=== PATIENT | female | born 1945 | race Caucasian/White ===

== ENCOUNTER 2019-01-04 15:12 | Inpatient (IN) ==
[2019-01-04] MEDS ORDERED: methylPREDNISolone 125 MG/2 ML VIAL IVP ONE (15:36)
[2019-01-04] MEDS ORDERED: Ipratropium/Albuterol Neb 3 ML IH ONE ×2 (15:36→17:09)
--- NOTE | 2019-01-04 15:44 | Emergency Department Note ---
Disposition Clinical Impression: COPD exacerbation Disposition: Admitted As Inpatient Condition: Undetermined Time of Disposition: 18:31 Chest Pain HPI - General Chief Complaint: ED Chest Pain Stated Complaint: cp/estela Time Seen by Provider: 01/04/19 15:29 Source: patient, EMS Mode of arrival: EMS Limitations: no limitations Vital Signs Reviewed: Yes Nursing Notes Reviewed: Yes - History of Present Illness HPI Narrative: 73-year-old female arrives to the emergency department with complaint of shortness of breath and mild chest pressure. Patient's pain started roughly 1.5 hours prior to arrival. The patient had a cardiac ablation during a JOANIE earlier today performed by Dr. Luis Manuel prado at [facility]. The patient has been undergoing treatment with Eliquis for atrial fibrillation. The patient states that her O2 saturation was in the low 70s upon arrival from EMS the placed on a nonrebreather mask which brought her oxygen up into the 90s. On arrival to the emergency department O2 saturation is 89-90% on 4 L nasal cannula. I nini her oxygen level to 6 L nasal cannula. The patient is in no respiratory distress but does appear to be taking deep breaths that are intermittent in nature. The patient states her chest pressure is subsequently resolved at this time. She has no other complaints including unilateral leg swelling, history DVT or PE, hemoptysis, recent surgeries but does admit to begin this recent JOANIE. Patient denies any other complaints at this time. Severity scale (1-10): 1 - Related Data Home Medications Medication Instructions Recorded Confirmed RX: Atenolol [Tenormin] 50 mg PO DAILY 05/27/16 01/04/19 RX: Cholecalciferol (Vitamin D3) 5,000 unit PO DAILY 05/27/16 01/04/19 [Vitamin D3] RX: Duloxetine HCl [Cymbalta] 60 mg PO DAILY 05/27/16 01/04/19 RX: Gabapentin [Neurontin] 300 mg PO BID 05/27/16 01/04/19 RX: Pregabalin [Lyrica] 200 mg PO BID 05/27/16 01/04/19 RX: Zolpidem Tartrate [Edluar] 10 mg PO HS 05/27/16 01/04/19 RX: Aspirin [Lo-Dose Aspirin EC] 81 mg PO DAILY 11/22/18 11/22/18 RX: Furosemide [Lasix] 20 mg PO 3XW 11/22/18 01/04/19 RX: Lactobacillus [Culturelle] 1 each PO DAILY 11/22/18 01/04/19 RX: Potassium 99 mg PO DAILY 11/22/18 11/22/18 RX: Potassium Gluconate 550 mg PO DAILY 11/22/18 01/04/19 Previous Rx's Medication Instructions Recorded RX: NIFEdipine XL (24 HR) 30 mg PO DAILY #30 tablet.er 05/27/16 [Procardia XL] Allergies Allergy/AdvReac Type Severity Reaction Status Date / Time naproxen [From Naprosyn] Allergy Hives Verified 01/04/19 15:19 codeine AdvReac Mild Anxiety Verified 01/04/19 15:19 All systems ED: reviewed and negative except as stated. Constitutional: Denies: fever, chills, weakness ENT ED: Denies: dysphagia Cardiovascular: Reports: chest pain. Denies: dyspnea on exertion, orthopnea, edema, syncope Respiratory: Reports: dyspnea, wheezes. Denies: cough, hemoptysis, sputum production Gastrointestinal: Denies: abdominal pain, nausea, vomiting Genitourinary: Denies: urgency, dysuria Musculoskeletal: Denies: back pain, neck pain Integumentary: Denies: rash Neurological: Denies: headache, weakness Chest Pain PMH - Past Medical History Medical history: Reports: arthritis, atrial fibrillation, fibromyalgia, GERD, hyperlipidemia, hypertension, other Surgical history: Reports: hysterectomy Psychiatric history: Reports: no psych history - Social History Smoking Status: Former smoker Alcohol use: Reports: none Drug use: Reports: none Physical Exam - General Limitations: no limitations General appearance: alert, in no apparent distress - Head Head exam: atraumatic, normocephalic, normal inspection - Eye Eye exam: Present: normal appearance, PERRL, EOMI - ENT ENT exam: normal exam - Neck Neck exam: Present: normal inspection, full ROM, trachea midline - Chest Chest inspection: Present: normal inspection, symmetric chest wall rise - Respiratory Respiratory exam: Present: wheezes (mild scattered). Absent: respiratory distress - Cardiovascular Cardiovascular exam: Present: regular rate, normal rhythm, normal heart sounds - Abdominal Exam Abdominal exam: Present: soft, Non-Tender. Absent: tenderness, distention, guarding, rebound, rigidity - Extremities Exam Extremities exam: Present: normal inspection, full ROM. Absent: tenderness, pedal edema - Neurological Exam Neurological exam: Present: alert, oriented X3 - Skin Skin exam: Present: warm, dry, intact, normal color Course - Reevaluation(s) Reevaluation #1: Patient's reevaluation demonstrates bilateral rales on auscultation. The patient was given an extra DuoNeb and albuterol nebulizer. In addition the patient was noted to have a hemoglobin dropped from 10.9-9.4. Patient is on anticoagulation so Hemoccult card will be sent. No gross blood on visual physician. Patient denies any melena or hematochezia. Time: 17:11 Reevaluation #2: I attempted to admit the patient to the hospitalist. The hospitalist states she refused to take the patient at this time and to admit to the night team. Time: 18:05 Vital Signs Temperature 98.2 F 01/04/19 15:30 Pulse Rate 78 01/04/19 15:30 Respiratory Rate 22 01/04/19 15:30 Blood Pressure 126/62 01/04/19 15:30 O2 Sat by Pulse Oximetry 90 01/04/19 15:30 Temperature 98.2 F 01/04/19 15:32 Pulse Rate 78 01/04/19 15:32 Respiratory Rate 13 01/04/19 18:05 Blood Pressure 126/62 01/04/19 15:32 O2 Sat by Pulse Oximetry 95 01/04/19 18:05 Oxygen Delivery Oxygen Delivery Nasal Cannula Chest Pain - MDM Narrative Medical decision making narrative: Patient's workup in the emergency department demonstrates findings concerning for COPD exacerbation. The patient was noted to be hypoxic upon evaluation initially from EMS in the 70s. The patient was placed on 15 nonrebreather mask. This brought up into the upper 80s. The patient was subsequently placed on 4 L nasal cannula. The patient physical exam and lab work as well as findings here in the emergency department demonstrates findings consistent with a COPD exacerbation. The patient does have a mildly elevated BNP which was ordered secondary to what appears to be vascularization on chest x-ray. This may be congruent with the patient's history of fibrosis of the lungs. The patient was placed on BiPAP secondary very to minimal improvement after DuoNeb's. The patient denies any chest pain at this time. Her pulse ox is improved to the upper 90s. The patient states she is feeling much better. Patient did receive site and Medrol I IV here in the ED as well as 3 duo nebs and one albuterol treatment. The patient is anticoagulated on Eliquis and I am not concerned a bout pulmonary embolus or clot thrown from recent cart emergency secondary to JOANIE being performed at time of cardioversion. The patient will be admitted to the hospitalist this time. Accepted by Dr. beckett. - Lab Data Lab results reviewed: Yes I reviewed the patient's lab results. Result diagrams: 01/04/19 15:47 01/04/19 15:47 Lab Results 01/04/19 01/04/19 01/04/19 Range/Units 15:47 15:47 16:10 WBC 8.0 (4.3-11.1) K/mcL RBC 3.49 L (3.82-4.97) M/mcL Hgb 9.4 L D (11.5-15.4) g/dL Hct 30.8 L (35.3-44.9) % MCV 88.3 (83.0-100.0) fL MCH 26.9 L (28.0-33.3) pg MCHC 30.5 L (31.6-35.5) g/dL RDW 15.0 H (11.5-14.5) % Plt Count 171 (140-400) K/mcL MPV 11.0 (9.4-12.4) fL Immature Gran % 0.4 (0-4) % Seg Neutrophils % 69.6 % Lymphocytes % 22.6 % Monocytes % 6.3 % Eosinophils % 0.8 % Basophils % 0.3 % Neutrophils # 5.6 (1.6-8.9) K/mcL Lymphocytes # 1.8 (0.6-4.6) K/mcL Monocytes # 0.5 (0.0-1.3) K/mcL Eosinophils # 0.1 (0.0-0.6) K/mcL Basophils # 0.0 (0.0-0.2) K/mcL Sodium 138 (136-145) mEq/L Potassium 4.2 (3.5-5.1) mEq/L Chloride 102 (98-107) mEq/L Carbon Dioxide 31 H (23-29) mEq/L BUN 20 (8-23) mg/dL Creatinine 0.56 L (0.60-1.20) mg/dL Est GFR ( Amer) > 60 (> 60) Est GFR (Non-Af Amer) > 60 (> 60) BUN/Creatinine Ratio 36 H (6-26) Glucose 143 H (70-105) mg/dL Calculated Osmolality 291 (280-300) Calcium 8.8 (8.6-10.3) mg/dL Troponin I < 0.03 (< 0.04) ng/mL B-Natriuretic Peptide 259 H (Less than 100) pg/mL Stool Occult Bld Scrn (Negative) 01/04/19 Range/Units 17:10 WBC (4.3-11.1) K/mcL RBC (3.82-4.97) M/mcL Hgb (11.5-15.4) g/dL Hct (35.3-44.9) % MCV (83.0-100.0) fL MCH (28.0-33.3) pg MCHC (31.6-35.5) g/dL RDW (11.5-14.5) % Plt Count (140-400) K/mcL MPV (9.4-12.4) fL Immature Gran % (0-4) % Seg Neutrophils % % Lymphocytes % % Monocytes % % Eosinophils % % Basophils % % Neutrophils # (1.6-8.9) K/mcL Lymphocytes # (0.6-4.6) K/mcL Monocytes # (0.0-1.3) K/mcL Eosinophils # (0.0-0.6) K/mcL Basophils # (0.0-0.2) K/mcL Sodium (136-145) mEq/L Potassium (3.5-5.1) mEq/L Chloride (98-107) mEq/L Carbon Dioxide (23-29) mEq/L BUN (8-23) mg/dL Creatinine (0.60-1.20) mg/dL Est GFR ( Amer) (> 60) Est GFR (Non-Af Amer) (> 60) BUN/Creatinine Ratio (6-26) Glucose (70-105) mg/dL Calculated Osmolality (280-300) Calcium (8.6-10.3) mg/dL Troponin I (< 0.04) ng/mL B-Natriuretic Peptide (Less than 100) pg/mL Stool Occult Bld Scrn Negative (Negative) - Radiology Data Radiology results reviewed: Yes I reviewed the patient's radiology results. Chest X-Ray 01/04/19 15:36 IMPRESSION: Interstitial changes throughout the lungs, diffuse infiltrate versus edema. D/ / Mariano Rayo MD / Mariano Rayo MD Interpreting Provider: Mariano Rayo MD - EKG Data EKG attestation: Yes I reviewed and interpreted this EKG. EKG results narrative: Heart rate 72 beats for minute. Normal sinus rhythm. No ST elevation or ST depression noted. A few atrial premature complexes noted on EKG. Inverted T waves in V4, V5, V6. Attestation Statement - Attestation Attestation: Resident Attestation: I examined this patient and my medical decision making was reviewed with the Resident Physician. I agree with the documented findings, disposition and treatment plan as described except to the extent set forth below. We independently had [id number] contact with the patient. Patient with previous lung problems but no specific diagnosis of COPD, asthma, possible fibrosis presenting to the emergency department for evaluation of shortness of breath after she underwent a cardioversion and ablation earlier today. Patient went home when everything was fine but then symptoms started. Patient does have associated wheezing. Patient will be treated as likely r eactive airway disease. Mild respiratory distress, moderate associated bilateral wheezing, regular rhythm, abdomen soft nontender palpation without significant peripheral edema.
[2019-01-04 16:22] LABS: Basophils % 0.3 %; Eosinophils # 0.1 K/mcL (0.0-0.6); Eosinophils % 0.8 %; Hematocrit 30.8 % (35.3-44.9); Hemoglobin 9.4 g/dL (11.5-15.4); Immature Granulocytes % 0.4 % (0-4); Lymphocytes # 1.8 K/mcL (0.6-4.6); Lymphocytes % 22.6 %; Mean Corpuscular HGB Conc 30.5 g/dL (31.6-35.5); Mean Corpuscular Hemoglobin 26.9 pg (28.0-33.3); Mean Corpuscular Volume 88.3 fL (83.0-100.0); Monocytes # 0.5 K/mcL (0.0-1.3); Monocytes % 6.3 %; Neutrophils # 5.6 K/mcL (1.6-8.9); Platelet Count 171 K/mcL (140-400); Red Blood Count 3.49 M/mcL (3.82-4.97); Segmented Neutrophils % 69.6 %
[2019-01-04 16:42] LABS: BUN/Creatinine Ratio 36 (6-26); Blood Urea Nitrogen 20 mg/dL (8-23); Calcium 8.8 mg/dL (8.6-10.3); Carbon Dioxide 31 mEq/L (23-29); Chloride 102 mEq/L (98-107); Glucose 143 mg/dL (70-105); Osmolality,Calculated 291 (280-300); Potassium 4.2 mEq/L (3.5-5.1); Sodium 138 mEq/L (136-145); Troponin I < 0.03 ng/mL (< 0.04); eGFR For Non-African Americans > 60 (> 60)
[2019-01-04] MEDS ORDERED: Albuterol 2.5 MG/3 ML NEBULIZER IH ONE (17:09)
[2019-01-04] MEDS ORDERED: Naloxone 0.4 MG/ML INJ IVP PRN (19:10)
[2019-01-04] MEDS ORDERED: Acetaminophen 325 MG TABLET PO PRN (19:10)
[2019-01-04] MEDS ORDERED: Ondansetron 4 MG/2 ML VIAL IVP PRN (19:10)
--- NOTE | 2019-01-04 20:03 | Internal Med History&Physical ---
Date of Encounter: 01/04/19 Time of Encounter: 20:02 Internal Medicine - H&P: HPI Chief complaint: SOB History of present illness: Ms. Melendez is a 73 year old female with a past medical history of hypertension, GERD, pulmonary hypertension, hyperlipidemia, chronic hypoxemia on 4 L O2 at home, and history of atrial fibrillation status post cardioversion earlier today who presents to the ED with complaints of shortness of breath and mild chest pressure. Patient underwent successful DC cardioversion for atrial fibrillation earlier this morning. Has been on Eliquis for 2 weeks prior. Patient states that after returning home from her procedure, she had taken a nap and then awoke around 1:30 PM to use the bathroom noting however shortness of breath and chest pressure. Patient remained awake and sat in her recliner still feeling symptomatic without any improvement. Patient subsequently called the squad. When they arrived patient was saturating in the 70s on 4 L. She was placed on a nonrebreather and bumped up to 15 L and brought into the hospital. On arrival, patient was saturating 89-90% on 4L still having some work of breathing. She was placed on a trial of BiPAP and received a breathing treatment including steroids in the ED with improvement in her symptoms. Patient otherwise denies any reports of recent illness, fever, chills, symptoms of upper respiratory tract infection, cough or pleuritic chest pain. Further denies any orthopnea, paroxysmal nocturnal dyspnea or worsening lower extremity edema. With respect to her chest discomfort, she describes it as a heaviness in her chest that was non-radiating, nonpleuritic and not reproducible. Symptoms seem to have resolved. Laboratory workup was relatively unremarkable including a negative troponin. However, patient's hemoglobin has dropped from 10.9-9.4 over the past 5 days. Previously was 12.0 on November 18 of this year. Patient does report history of hemorrhoids in the past with hemorrhoidal bleeding secondary to constipation. She denies dark tarry stools but did note blood on the toilet paper and in her stool approximately 5 days ago. She described it as bright red and less than a teaspoon and quantity. Initial EKG showed nonspecific changes. Chest x-ray suggestive of diffuse infiltrate versus edema. Patient currently stable from a respiratory and hemodynamic standpoint though still requiring higher than baseline levels of oxygen. Past Med Surg Social Fam HX - Past Medical History Medical history: arthritis, atrial fibrillation, fibromyalgia, GERD, hyperlipidemia, hypertension, other Additional medical history: "trouble with my diaphragm", PULMONARY HTN, Psychiatric history: no psych history - Past Surgical History Surgical History: hysterectomy Additional surgical history: bladder suspension, foot surgery, BACK SX, cardiac ablation and cardioversion - Social History Smoking Status: Former smoker Smokeless Tobacco Status: No Alcohol use: none Drug use: none Internal Medicine - H&P: Meds Atenolol [Tenormin] 50 mg PO DAILY 05/27/16 [History] Cholecalciferol (Vitamin D3) [Vitamin D3] 5,000 unit PO DAILY 05/27/16 [History] Duloxetine HCl [Cymbalta] 60 mg PO DAILY 05/27/16 [History] Gabapentin [Neurontin] 300 mg PO BID 05/27/16 [History] NIFEdipine XL (24 HR) [Procardia XL] 30 mg PO DAILY #30 tablet.er 05/27/16 [Rx] Pregabalin [Lyrica] 200 mg PO BID 05/27/16 [History] Zolpidem Tartrate [Edluar] 10 mg PO HS 05/27/16 [History] Aspirin [Lo-Dose Aspirin EC] 81 mg PO DAILY 11/22/18 [History] Furosemide [Lasix] 20 mg PO 3XW 11/22/18 [History] Lactobacillus [Culturelle] 1 each PO DAILY 11/22/18 [History] Potassium 99 mg PO DAILY 11/22/18 [History] Potassium Gluconate 550 mg PO DAILY 11/22/18 [History] Allergy/AdvReac Type Severity Reaction Status Date / Time naproxen [From Naprosyn] Allergy Hives Verified 01/04/19 15:19 codeine AdvReac Mild Anxiety Verified 01/04/19 15:19 All Systems PM: A 10-system review of systems was performed and is negative for pertinent findings except as documented above in the HPI. - Constitutional Constitutional: no chills, no fever(s), no night sweats - EENT Eyes: no change in vision, no discharge, no pain, no photophobia Ears: no ear discharge, no ear pain, no tinnitus Nose, mouth and throat: no dysphagia, no nasal discharge, no neck pain, no sore throat - Cardiovascular Cardiovascular ROS IM: no chest pain, no diaphoresis, no dyspnea, no lightheadedness, no palpitations, no syncope - Respiratory Respiratory: no cough, no dyspnea, no wheezing, no excessive phlegm production - Gastrointestinal Gastrointestinal: no abdominal pain, no diarrhea, no hematemesis, no hematochezia, no melena, no nausea, no vomiting - Genitourinary Genitourinary: no change in urinary stream, no dysuria, no flank pain, no hematuria - Musculoskeletal Musculoskeletal ROS IM: no numbness, no tingling - Integumentary Integumentary IM: no rash, no unusual bruising - Neurological Neurological ROS: no confusion, no convulsions, no focal weakness, no numbness, no tingling, no tremor(s) - Hematologic/Lymphatic Hematologic/Lymphatic: no easy bruising - Constitutional Vitals: Temp Pulse Resp BP Pulse Ox 98.2 F 78 13 126/62 95 01/04/19 15:32 01/04/19 15:32 01/04/19 18:05 01/04/19 15:32 01/04/19 18:05 Exam: General: Alert and oriented 3 lying in bed in no acute distress Skin:Normal color, no rash, no lesions. HEENT:EOM, pupils equal, round and reactive. Cardiovascular:Normal S1 & S2, no rubs, murmurs or gallops. No JVD. Pulse regular. Lungs: Echo was appreciated bilaterally up to the posterior mid thorax. No wheezing noted Abdomen:Soft, non-tender, no rigidity. Extremities:No deformity, no edema or tenderness, no joint swelling or clubbing. Neurological:Normal cognition and motor skills. Pulses:Carotid and radial pulses normal +2. Rest of the physical exam is non contributory Internal Med - H&P Results - Labs CBC & Chem 7: 01/05/19 04:55 01/05/19 04:55 Labs: Short CBC 01/04/19 Range/Units 15:47 WBC 8.0 (4.3-11.1) K/mcL Hgb 9.4 L D (11.5-15.4) g/dL Hct 30.8 L (35.3-44.9) % Plt Count 171 (140-400) K/mcL Neutrophils # 5.6 (1.6-8.9) K/mcL BMP 01/04/19 15:47 Sodium 138 Potassium 4.2 Chloride 102 Carbon Dioxide 31 H BUN 20 Creatinine 0.56 L Glucose 143 H Calcium 8.8 Cardiac Enzymes 01/04/19 Range/Units 15:47 Troponin I < 0.03 (< 0.04) ng/mL - Impressions ITS Impressions Chest X-Ray 01/04/19 15:36 IMPRESSION: Interstitial changes throughout the lungs, diffuse infiltrate versus edema. D/ / Mariano Rayo MD / Mariano Rayo MD Interpreting Provider: Mariano Rayo MD - Assessment and Plan (1) SOB (shortness of breath) Current Visit: No Status: Chronic Assessment and plan: Acute shortness of breath status post DC cardioversion earlier this morning in the setting of history of lung disease of unclear etiology, chronic hypoxic respiratory failure and mild pulmonary hypertension. Suspect etiology to be secondary to acute pulmonary edema in the setting of her cardioversion. No EKG changes or troponin elevation to suggest ACS. No prior history symptoms to suggest acute CHF exacerbation. Last echo in July 2018 showed an EF of 55- 60% with normal left ventricular diastolic function. Low suspicion for PE as patient has been on Eliquis prior. Patient has no history of COPD though did seem to respond to breathing treatments in the ED. -Continue O2 support -Continue with breathing treatments -Stool guaiac secondary to anemia on Eliquis -Given suggestion of edema on chest x-ray and crackles on physical examination we will give 1 dose of IV push Lasix 40 mg. -We will obtain an echocardiogram in the morning -Cardiology consult (2) Chronic respiratory failure with hypoxia Current Visit: Yes Status: Acute Assessment and plan: History of chronic respiratory failure with hypoxemia currently on 4 L nasal cannula at home. Patient has had workup including right heart catheter and pulmonary function testing showing mild pulmonary hypertension and concern for interstitial lung disease. No history of COPD or significant smoking history for that matter. Patient currently in no respiratory distress but still requiring 9 L nasal cannula. -We will continue supportive O2 -We will give Lasix due to concern for pulmonary vascular congestion -DuoNeb treatments and steroids -BiPAP as needed -Consider pulmonary consult if symptoms do not improve (3) Anemia Current Visit: Yes Status: Acute Assessment and plan: Normocytic anemia in the setting of recent treatment with Eliquis for atrial fibrillation. Patient's hemoglobin has dropped from 10.9-9.4 from the until now. Previously back on November 18 her hemoglobin was 12. Does endorse a history of hemorrhoids and recent episode of GI bleed during bowel movement approximately 5 days ago. Hemoccult testing in the ED was negative. Patient currently hemodynamically stable. Suspect GI source. -We will continue Eliquis for now given her risk of recurrence of her A. fib and monitor H&H -Will obtain iron studies -We will obtain stool guaiac test -Consider GI consult Qualifiers: Qualified Code(s): D64.9 - Anemia, unspecified (4) Fibromyalgia Current Visit: Yes Status: Acute Assessment and plan: Continue with home medications. (5) DVT prophylaxis Current Visit: Yes Status: Acute Assessment and plan: Currently on Eliquis - Time Spent With Patient Total time spent is greater than 50% in coordination of care (as documented) at patient's floor/unit and/or counseling patient:
[2019-01-04] MEDS ORDERED: Furosemide 40 MG/4 ML VIAL IVP ONE (20:49)
[2019-01-04] MEDS ORDERED: traMADol 50 MG TABLET PO PRN (22:36)
[2019-01-04] MEDS: MethylPREDNISolone 40 MG/ML VIAL IVP SCH (23:47)
[2019-01-04] MEDS: Ipratropium/Albuterol Neb 3 ML IH SCH (23:53)
[2019-01-05] MEDS: Ipratropium/Albuterol Neb 3 ML IH SCH ×6 (04:26→23:43)
[2019-01-05] MEDS: MethylPREDNISolone 40 MG/ML VIAL IVP SCH ×3 (05:17→18:13)
[2019-01-05 05:35] LABS: % Iron Saturation 6 % (15-50); Iron 30 mcg/dL (50-170); Transferrin 339 mg/dL (203-362)
[2019-01-05 05:36] LABS: BUN/Creatinine Ratio 32 (6-26); Blood Urea Nitrogen 19 mg/dL (8-23); Calcium 9.3 mg/dL (8.6-10.3); Carbon Dioxide 33 mEq/L (23-29); Chloride 95 mEq/L (98-107); Glucose 175 mg/dL (70-105); Magnesium 1.8 mg/dL (1.6-2.6); Osmolality,Calculated 291 (280-300); Phosphorous 3.5 mg/dL (2.7-4.5); Potassium 4.2 mEq/L (3.5-5.1); Sodium 137 mEq/L (136-145); Troponin I < 0.03 ng/mL (< 0.04); eGFR For Non-African Americans > 60 (> 60)
[2019-01-05 05:39] LABS: Hematocrit 30.7 % (35.3-44.9); Hemoglobin 9.7 g/dL (11.5-15.4); Mean Corpuscular HGB Conc 31.6 g/dL (31.6-35.5); Mean Corpuscular Hemoglobin 26.7 pg (28.0-33.3); Mean Corpuscular Volume 84.6 fL (83.0-100.0); Mean Platelet Volume 10.9 fL (9.4-12.4); Platelet Count 179 K/mcL (140-400); Red Blood Count 3.63 M/mcL (3.82-4.97)
[2019-01-05] MEDS ORDERED: *HR* Enoxaparin 40 MG/0.4 ML SYRINGE SQ SCH (06:00)
[2019-01-05] MEDS ORDERED: Furosemide 20 MG TABLET PO SCH (09:00)
[2019-01-05] MEDS ORDERED: Gabapentin 300 MG CAPSULE PO SCH (09:00)
[2019-01-05] MEDS: NIFEdipine XL (24 HR) 30 MG TAB.ER.24 PO SCH (09:06)
[2019-01-05] MEDS: Cholecalciferol (D-3) 1,000 UNIT TABLET PO SCH (09:06)
[2019-01-05] MEDS: Pregabalin 50 MG CAPSULE PO SCH ×2 (09:06→21:27)
[2019-01-05] MEDS: Lactobacillus 1 EACH CAP.SPRINK PO SCH (09:06)
--- NOTE | 2019-01-05 10:15 | Cardiology Progress Note ---
<Marcos Dorsey - Last Filed: 01/05/19 10:38> Date of Encounter: 01/05/19 Time of Encounter: 09:00 Assessment and Plan (1) CHF (congestive heart failure) Current Visit: Yes Status: Acute 3) Suspected CHF with CXR findings and elevated BNP. Last TTE 07/2018-EF 55%-60%. Nomal diastolic function. Mild MR. Mild to moderate tricuspid regurgitation. Mild PAH. Possible dCHF. SOB likely multifactoral with underlying lung disease. Agree with IV lasix. Strict I&O. Low sodium diet. Repeat TTE pending. Qualifiers: Heart failure type: diastolic Heart failure chronicity: acute Qualified Code(s): I50.31 - Acute diastolic (congestive) heart failure (2) Chronic respiratory failure with hypoxia Current Visit: Yes Status: Acute Patient presented with difficulty breathing. States SOB ongoing for months and is pending f/u on recent out-pt work-up. Last TTE 07/2019 showed preserved EF and normal diastolic function, but she did have mild to moderate TR. Noted BNP mildly elevated 327. CXR Showed diffuse infiltrates verses edema. Rales on exam. Repeat TTE pending. Consider pulmonology consult also. Recent abnormal PFT and CT scan with new findings of moderate non-specefic diffuse mosaic ground glass opacities suggesting infiltrate verses inflammation. Now back on Nasal cannula. (3) Atrial fibrillation Current Visit: No Status: Acute S/p successful JOANIE with DCCV to NSR. Remains NSR. On eliquis for past two weeks. Noted Hgb slowly decreasing. Will need to be on AC at least one month after DCCV. Anemia eval in progress by primary team. Qualifiers: Atrial fibrillation type: paroxysmal Qualified Code(s): I48.0 - Paroxysmal atrial fibrillation Discussion w patient/family: The assessment and plan as outlined above was discussed with the patient and/or family members who expressed understanding and agreement. All questions were answered. Thank you for involving us in the care of your patient. Please call with any questions. Subjective Principal diagnosis: respiratory distress Interval history: Ms. Melendez is a [age] year old female with history of chronic hypoxia on home O2 at 4L, atrial fibrillation s/p DCCV/JOANIE 01/04/19, and HTN. She presented to the hospital yesterday evening with difficulty breathing. States she underwent JOANIE/DCCV with no complication yesterday. She converted to NSR. Yesterday evening after laying down for a nap she states she could not sleep because she was having trouble taking breaths. C/o ongoing SOB for the past two months. She was undergoing out-pt evaluation by her PCP and was scheduled to follow with her eligibility analyst. She states her symptoms usually resolve quickly. Yesterday her symptoms did not resolve despite using her home O2 at increased flow rate. The SOB was more severe than she experienced in the past. She was treated with breathing treatment and bipap in the ED with improvement in her sym ptoms. Denies orthopnea, PND, or edema. Objective Vital Signs, Last 4 Hours Temp Pulse Resp BP Pulse Ox 01/05/19 07:49 18 131/75 92 01/05/19 06:36 98.4 F 95 90 General: Conversant HEENT: Atraumatic, Normocephaly, Mucus Membranes Moist Neck: No JVD, Normal carotid pulses Cardiac: Reg Rate and Rhythm, Normal S1 and S2, No Murmur Lungs: Other (Respirations mildly labored with conversation. ) Neuro: Alert and responsive, No focal deficits noted Abdomen: Soft, Non-Tender Skin: No rashes noted on visualized skin Musculoskeletal: No Chest Wall Tenderness Extremities: No Clubbing, No Cyanosis, No Edema, Normal Pulses Results 01/05/19 04:55 01/05/19 04:55 Lab Results 01/04/19 01/04/19 01/04/19 15:47 15:47 16:10 WBC 8.0 Hgb 9.4 L D Hct 30.8 L Plt Count 171 Sodium 138 Potassium 4.2 Chloride 102 Carbon Dioxide 31 H BUN 20 Creatinine 0.56 L Glucose 143 H Calcium 8.8 Magnesium Troponin I < 0.03 B-Natriuretic Peptide 259 H 01/05/19 01/05/19 01/05/19 04:55 04:55 04:55 WBC 10.6 Hgb 9.7 L Hct 30.7 L Plt Count 179 Sodium 137 Potassium 4.2 Chloride 95 L Carbon Dioxide 33 H BUN 19 Creatinine 0.60 Glucose 175 H Calcium 9.3 Magnesium 1.8 Troponin I < 0.03 B-Natriuretic Peptide 367 H - Imaging and Cardiology Echo: report reviewed - EKG Interpretation EKG results cardiology: personally reviewed Consult Discharge Plan - Plan Referrals: Winston Mooney MD [Primary Care Provider] - <ClaytonDennis Piper - Last Filed: 01/06/19 09:23> Date of Encounter: 01/06/19 Assessment and Plan Discussion w patient/family: The assessment and plan as outlined above was discussed with the patient and/or family members who expressed understanding and agreement. All questions were answered. Thank you for involving us in the care of your patient. Please call with any questions. Objective Vital Signs, Last 4 Hours Temp Pulse Resp BP Pulse Ox 01/06/19 07:38 18 95 01/06/19 07:22 97.8 F 81 16 143/74 92 Results 01/05/19 04:55 01/05/19 04:55 - Attending Attestation I have personally performed a face to face evaluation on this patient. I have reviewed and agree with the documented findings and care plan as documented by the TYPING POOL SUPERVISOR. History and Exam by me shows: 73-year-old pleasant female with history of chronic respiratory failure, chronic lung disease, chronic diastolic heart failure, A. fib status post successful JOANIE cardioversion admitted for acute shortness of breath with associated orthopnea. No chest pain or palpitations. She has improved following diuretics. AAOX3 in NAD at the bedside Hemodynamically stable Cardiopulmonary exam revealed S1, S2, grade 2/6 systolic murmur; bilateral basilar rales Rhythm reviewed - sinus rhythm, no acute ST T changes Echo preserved EF, moderate tricuspid regurgitation, mild pulmonary hypertension Impression/plan: 1)Acute distolic CHF exacerbation - Recommend continue IV diuretics. Need to have her oral Lasix increased upon discharge 2) Persistent atrial fibrillation status post JOANIE cardioversion. Needs to continue anticoagulation uninterrupted for at least a month and thereafter based on [id number] score of at least 3 3) Chronic respiratory failure- pulmonary recommendations would be appreciated Thanks, Dennis Arnold MD [facility]
--- NOTE | 2019-01-05 10:32 | Internal Med Progress Note ---
Hospitalist Progress Note - Encounter Date of Encounter: 01/05/19 Time of Encounter: 11:00 - Subjective Interval History: Patient is a 73-year-old female with past medical history significant for chronic hypoxemia on 4 L of nasal cannula with pulmonary hypertension who presents due to shortness of breath status post successful DC cardioversion of atrial fibrillation on 01/04/19 - Exam Vitals: Temp Pulse Resp BP Pulse Ox 98.4 F 95 18 131/75 92 01/05/19 06:36 01/05/19 06:36 01/05/19 07:49 01/05/19 07:49 01/05/19 07:49 Exam: Gen.: Nonacute distress, alert and oriented 3 ENT: Mucosal membranes moist Respiratory: Lungs are clear to auscultation bilaterally without any wheezing rhonchi or rales Cardiovascular: Normal S1 and S2 regular rate rhythm no murmurs rubs or gallops Abdomen: Soft, nontender and nondistended with positive bowel sounds Extremities: No lower extremity edema Skin: Normal color - Assessment and Plan (1) SOB (shortness of breath) Current Visit: No Status: Chronic Assessment and Plan: Patient is a 73-year-old female with past medical history significant for chronic hypoxemia on 4 L of nasal cannula with pulmonary hypertension who presents due to shortness of breath status post successful DC cardioversion of atrial fibrillation on 01/04/19 Echocardiogram pending Patient currently close to baseline O2 requirements on 5 L down from 8 L earlier this morning; patient's baseline is 4 L (2) Chronic respiratory failure with hypoxia Current Visit: Yes Status: Acute Assessment and Plan: History of chronic respiratory failure with hypoxemia currently on 4 L nasal cannula at home. Patient has had workup including right heart catheter and pulmonary function testing showing mild pulmonary hypertension and concern for interstitial lung disease. Patient's O2 requirements now close to baseline as is on 5 L nasal cannula and baseline 4 L of nasal cannula; patient was on 8 L of nasal cannula earlier. Will continue scheduled DuoNeb and steroids (3) Anemia Current Visit: Yes Status: Acute Assessment and Plan: Normocytic anemia in the setting of recent treatment with Eliquis for atrial fibrillation. Patient's hemoglobin has dropped from 10.9-9.4 from the until now. Previously back on November 18 her hemoglobin was 12. Hemoccult testing in the ED was negative. Patient currently hemodynamically sta ble. Stool guaiac test pending as are iron studies. Will continue to monitor (4) Atrial fibrillation Current Visit: No Status: Acute Assessment and Plan: Patient status post subtotal JOANIE with DCCV to normal sinus rhythm Infection currently on oral anticoagulation with Eliquis Patient with sudden shortness of breath status post procedure and cardiology consulted for any recommendations. (5) Fibromyalgia Current Visit: Yes Status: Acute Assessment and Plan: Continue with home medications. DVT Prophylaxis: Continue Eliquis - Time Spent with Patient Total time spent is greater than 50% in coordination of care (as documented) at patient's floor/unit and/or counseling patient: Internal Medicine: Result - Labs CBC & Chem 7: 01/05/19 04:55 01/05/19 04:55 Labs: Short CBC 01/04/19 01/05/19 Range/Units 15:47 04:55 WBC 8.0 10.6 (4.3-11.1) K/mcL Hgb 9.4 L D 9.7 L (11.5-15.4) g/dL Hct 30.8 L 30.7 L (35.3-44.9) % Plt Count 171 179 (140-400) K/mcL Neutrophils # 5.6 (1.6-8.9) K/mcL BMP 01/04/19 01/05/19 15:47 04:55 Sodium 138 137 Potassium 4.2 4.2 Chloride 102 95 L Carbon Dioxide 31 H 33 H BUN 20 19 Creatinine 0.56 L 0.60 Glucose 143 H 175 H Calcium 8.8 9.3 Cardiac Enzymes 01/04/19 01/05/19 Range/Units 15:47 04:55 Troponin I < 0.03 < 0.03 (< 0.04) ng/mL - Impressions Impressions Chest X-Ray 01/04/19 15:36 IMPRESSION: Interstitial changes throughout the lungs, diffuse infiltrate versus edema. D/ / Mariano Rayo MD / Mariano Rayo MD Interpreting Provider: Mariano Rayo MD Consult Discharge Plan - Plan Referrals: Winston Mooney MD [Primary Care Provider] - (3) Anemia Qualifiers: Qualified Code(s): D64.9 - Anemia, unspecified (4) Atrial fibrillation Qualifiers: Atrial fibrillation type: paroxysmal Qualified Code(s): I48.0 - Paroxysmal atrial fibrillation
[2019-01-05] MEDS: Furosemide 40 MG/4 ML VIAL IVP SCH (11:26)
[2019-01-05] MEDS ORDERED: traMADol 50 MG TABLET PO PRN (15:38)
[2019-01-05] MEDS: Apixaban 5 MG TABLET PO SCH ×2 (16:01→21:27)
--- NOTE | 2019-01-05 20:35 | Electrocardiograph Report ---
[place] [id number] Test Date: 2019-01-04 Pat Name: Amanda Melendez Department: [id number] Room: 2NE28 Gender: F Respiratory Support Technician: : 1945 Requested By: Lambert Alonzo Order Number: [id number] Reading MD: Chinyere Velasquez Measurements Intervals [place] Rate: 72 P: 71 CT: 180 QRS: 59 QRSD: 98 T: -32 QT: 395 QTc: 433 Interpretive Statements Sinus rhythm Atrial premature complexes Low voltage, precordial leads Nonspecific ST abnormalities, diffuse leads Electronically Signed On 01-05-2019 20:33:30 EST by Chinyere Velasquez
[2019-01-06] MEDS: MethylPREDNISolone 40 MG/ML VIAL IVP SCH ×2 (00:29→08:16)
[2019-01-06] MEDS: Ipratropium/Albuterol Neb 3 ML IH SCH ×5 (04:16→19:40)
[2019-01-06] MEDS: Apixaban 5 MG TABLET PO SCH ×2 (08:15→20:04)
[2019-01-06] MEDS: NIFEdipine XL (24 HR) 30 MG TAB.ER.24 PO SCH (08:16)
[2019-01-06] MEDS: Furosemide 40 MG/4 ML VIAL IVP SCH (08:16)
[2019-01-06] MEDS: Cholecalciferol (D-3) 1,000 UNIT TABLET PO SCH (08:16)
[2019-01-06] MEDS: Pregabalin 50 MG CAPSULE PO SCH ×2 (08:16→20:04)
--- NOTE | 2019-01-06 09:26 | Internal Med Progress Note ---
Hospitalist Progress Note - Encounter Date of Encounter: 01/06/19 - Subjective Interval History: Patient presented with shortness of breath after DC CV conversion for atrial fibrillation found to be in acute on chronic hypoxic respiratory failure on admission. Patient's acute on chronic hypoxic respiratory failure has now resolved as patient is on baseline O2; however patient was found to have diffuse interstitial changes on chest x-ray therefore pulmonology consulted. Patient also found to have acute anemia with occult positive stool and GI will be consulted. - Exam Vitals: Temp Pulse Resp BP Pulse Ox 97.8 F 81 18 143/74 95 01/06/19 07:22 01/06/19 07:22 01/06/19 07:38 01/06/19 07:22 01/06/19 07:38 - Assessment and Plan (1) SOB (shortness of breath) Current Visit: No Status: Chronic Assessment and Plan: Patient presented with shortness of breath after DC CV conversion for atrial fibrillation found to be in acute on chronic hypoxic respiratory failure on admission. Patient's acute on chronic hypoxic respiratory failure has now resolved as patient is on baseline O2 Patient however was found to have diffuse interstitial changes on chest x-ray in addition to mild pulmonary hypertension on echocardiogram Pulmonology has been consulted and appreciate recommendations. (2) Chronic respiratory failure with hypoxia Current Visit: Yes Status: Acute Assessment and Plan: Patient presented with acute on chronic hypoxic respiratory failure and was requiring 9 L of O2 on admission Patient currently requires baseline O2 requirements at 4 L nasal cannula. Patient has had prior workup including right heart catheter and pulmonary function testing showing mild pulmonary hypertension and concern for interstitial lung disease. As was confirmed on chest x-ray this admission in addition to echocardiogram this admission. Will continue scheduled DuoNeb and steroids Pulmonology consulted as above and appreciate recommendations. (3) Anemia Current Visit: Yes Status: Acute Assessment and Plan: Patient presented with anemia on admission on Eliquis for atrial fibrillation. In addition patient found to have occult positive stool GI has been consulted and appreciate recommendations. (4) Atrial fibrillation Current Visit: No Status: Acute Assessment and Plan: Patient status post subtotal JOANIE with DCCV to normal sinus rhythm Echocardiogram showed EF of 60-65% with biatrial enlargement in addition to mild to moderate mitral and tricuspid regurgitation with mild pulmonary hypertension. Patient currently on oral anticoagulation with Eliquis Patient with sudden shortness of breath status post procedure and cardiology consulted for any recommendations. (5) Fibromyalgia Current Visit: Yes Status: Acute Assessment and Plan: Continue with home medications. DVT Prophylaxis: Continue Eliquis - Time Spent with Patient Total time spent is greater than 50% in coordination of care (as documented) at patient's floor/unit and/or counseling patient: Internal Medicine: Result - Labs CBC & Chem 7: 01/05/19 04:55 01/05/19 04:55 - Impressions Impressions Echocardiogram 01/05/19 19:15 Impressions: LVEF 60-65%. Indeterminate diastolic function. Normal right ventricular structure and function. Bi-atrial enlargement. Mild-moderate mitral regurgitation. Mild-moderate tricuspid regurgitation. Mild pulmonic regurgitation. Mild pulmonary hypertension. Left Ventricular Wall Motion: Rest Echo Findings All wall segments showed normal motion. Findings: Study Quality * Technically adequate exam. ECG Findings * Normal sinus rhythm. Left Ventricle * LVEF 60-65%. * Normal LV chamber size, wall thickness and function. * Indeterminate diastolic function. Right Ventricle * Normal right ventricular structure and function. Left Atrium * Severely dilated left atrium. Right Atrium * Moderately dilated right atrium. Mitral Valve * Normal mitral valve structure. * No mitral stenosis. * Mild-moderate mitral regurgitation. * Mild mitral annular calcification Aortic Valve * No aortic regurgitation. * Trileaflet aortic valve. * No aortic stenosis. Tricuspid Valve * Normal tricuspid valve structure. * Mild-moderate tricuspid regurgitation. * Estimated RA pressure is 3 mmHg. * Estimated RVSP is 46 mmHg. * Mild pulmonary hypertension. Pulmonic Valve * Pulmonic valve is not well visualized. * No pulmonic stenosis. * Mild pulmonic regurgitation. Pulmonary Artery * Pulmonary artery not well visualized. Aorta * Normally sized aortic root. Pericardium * There is no pericardial effusion present. Interatrial Septum * No evidence of PFO by color Doppler. IVC * Normal IVC dimensions and inspiratory collapse. Consult Discharge Plan - Plan Referrals: Winston Mooney MD [Primary Care Provider] - (3) Anemia Qualifiers: Qualified Code(s): D64.9 - Anemia, unspecified (4) Atrial fibrillation Qualifiers: Qualified Code(s): I48.0 - Paroxysmal atrial fibrillation
[2019-01-06 09:52] LABS: Basophils % 0.1 %; Hematocrit 34.9 % (35.3-44.9); Hemoglobin 10.8 g/dL (11.5-15.4); Immature Granulocytes % 1.2 % (0-4); Lymphocytes # 0.7 K/mcL (0.6-4.6); Lymphocytes % 4.5 %; Mean Corpuscular HGB Conc 30.9 g/dL (31.6-35.5); Mean Corpuscular Hemoglobin 26.5 pg (28.0-33.3); Mean Corpuscular Volume 85.5 fL (83.0-100.0); Mean Platelet Volume 10.9 fL (9.4-12.4); Monocytes # 0.8 K/mcL (0.0-1.3); Monocytes % 4.9 %; Neutrophils # 13.7 K/mcL (1.6-8.9); Platelet Count 233 K/mcL (140-400); Red Blood Count 4.08 M/mcL (3.82-4.97); Red Cell Distribution Width 15.4 % (11.5-14.5); Segmented Neutrophils % 89.3 %
[2019-01-06 10:12] LABS: BUN/Creatinine Ratio 33 (6-26); Blood Urea Nitrogen 28 mg/dL (8-23); Calcium 9.8 mg/dL (8.6-10.3); Carbon Dioxide 34 mEq/L (23-29); Chloride 92 mEq/L (98-107); Glucose 217 mg/dL (70-105); Osmolality,Calculated 298 (280-300); Potassium 3.6 mEq/L (3.5-5.1); Sodium 138 mEq/L (136-145); eGFR For Non-African Americans > 60 (> 60)
--- NOTE | 2019-01-06 10:13 | Pulmonology Consult Note ---
<Elvia Valverde - Last Filed: 01/06/19 16:41> Date of Encounter: 01/06/19 Time of Encounter: 08:00 Assessment and Plan (1) SOB (shortness of breath) Current Visit: No Status: Chronic History of shortness breath ongoing for the past 4-5 years. Does follow with pulmonology outpatient and is on 4 L of nasal cannula. At her last admission she underwent cardioversion for chronic atrial fibrillation and was returned to sinus rhythm. Likely secondary to pulmonary hypertension, will continue imdur (2) Anemia Current Visit: Yes Status: Acute Noted to have anemia at presentation last hemoglobin was on 11/18/18 which was 12 at presentation it was 10.9. Notes history of bleeding hemorrhoids. She was noted to have low transferrin and low iron. Anemia could be contributing to her shortness of breath but likely not the only source. Is on anticoagulation due to history of atrial fibrillation. Qualifiers: Anemia type: iron deficiency Qualified Code(s): D50.9 - Iron deficiency anemia, unspecified (3) Chronic respiratory failure with hypoxia Current Visit: Yes Status: Acute History of pulmonary hypertension upon review of her blood pressure has elevated wedge pressure which is likely due to group 2 pulmonary hypertension. Upon review of the CT her pulmonary artery does look dilated which could be due to pulmonary hypertension. Does have some exposure to heavy metal such as aluminum and asbetos but fibrosis is not noted on her CT chest. Continue Lasix Added Imdur to help relax the pulmonary vasculature which will reduce pulmonary vascular resistance subsequently reducing systemic arterial pressure subsequently help her symptoms related to pulmonary hypertension. History of Present Illness Consult date: 01/05/19 Reason for consult: dyspnea Chief complaint: dyspnea History of present illness: Ms. Phillip Julian is a 73-year-old female with past medical history of hypertension, GERD, pulmonary hypertension, hyperlipidemia, 4 L of oxygen, atrial fibrillation status post cardioversion 2 days ago. She presented to the emergency room complaining of worsening shortness of breath with chest pressure. At home per daughter they turn the oxygen to 5 L and had no improvement in her dyspnea. She had successfully converted to sinus rhythm during the cardioversion but noted that during the procedure JOANIE she had severe dyspnea and required 15 L of oxygen. Upon arrival to the hospital her oxygen saturation is 90% on 4 L s upplemental oxygen. At presentation to the ED she was on a nonrebreather and was on 15 L of oxygen. She reports chronic dyspnea which has been worsening for the past 8 months and has been following pulmonology for a few years. She is unsure as to why she has chronic dyspnea. 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 She also notes that she used to work at [employer] for 30 years which was noted to have asbestosis in its daniels. Her smoking history consisting of 12 pack years and quit smoking at the age of 25. She does have a pet bird for the past 2 years but notes that the bird stays downstairs of her apartment. She also has 2 dogs but have had some for quite some time. She reports that her dyspnea worsens with any type of physical activity including walking to the bathroom. She reported sleep study 5 years ago which was not significant for sleep apnea. She denies orthopnea, PND, lower extremity edema. This morning she is resting in bed and her daughters at bedside and reports his dyspnea has steadily been worsening. He denied any recent travel outside the country. Since her presentation she was noted to be anemic and iron studies reveal iron deficiency anemia. She also has elevated BNP at 367. Her most recent echo was yesterday which showed mild to moderate mitral regurg or patient and mild to moderate tricuspid regurgitation with mild pulmonary hypertension and EF of 60-65%. Past Med Surg Social Fam HX - Past Medical History Medical history: arthritis, atrial fibrillation, fibromyalgia, GERD, hyperlipidemia, hypertension, other Additional medical history: "trouble with my diaphragm", PULMONARY HTN, Psychiatric history: no psych history - Past Surgical History Surgical History: hysterectomy Additional surgical history: bladder suspension, foot surgery, BACK SX, cardiac ablation and cardioversion - Social History Smoking Status: Former smoker Smokeless Tobacco Status: No Alcohol use: none Drug use: none Medications and Allergies Atenolol [Tenormin] 50 mg PO DAILY 05/27/16 [History] Cholecalciferol (Vitamin D3) [Vitamin D3] 5,000 unit PO DAILY 05/27/16 [History] Duloxetine HCl [Cymbalta] 60 mg PO DAILY 05/27/16 [History] Gabapentin [Neurontin] 300 mg PO BID 05/27/16 [History] NIFEdipine XL (24 HR) [Procardia XL] 30 mg PO DAILY #30 tablet.er 05/27/16 [Rx] Pregabalin [Lyrica] 200 mg PO BID 05/27/16 [History] Zolpidem Tartrate [Edluar] 10 mg PO HS 05/27/16 [History] Furosemide [Lasix] 20 mg PO Q48H 11/22/18 [History] Lactobacillus [Culturelle] 1 each PO DAILY 11/22/18 [History] Potassium Gluconate 550 mg PO DAILY 11/22/18 [History] Apixaban [Eliquis] 5 mg PO BID 01/05/19 [History] Fluticasone Propionate Nasal [Flonase] 1 spray NS HS 01/05/19 [History] Omeprazole [PriLOSEC] 20 mg PO DAILY 01/05/19 [History] Allergy/AdvReac Type Severity Reaction Status Date / Time naproxen [From Naprosyn] Allergy Hives Verified 01/04/19 15:19 codeine AdvReac Mild Anxiety Verified 01/04/19 15:19 All Systems: The remainder of the systems were reviewed and are negative - Constitutional Constitutional: no chills, no fever(s), no weakness - EENT Nose, mouth and throat: no dysphagia, no nasal congestion, no sinus pressure - Cardiovascular Cardiovascular: dyspnea, dyspnea on exertion, no chest pain at rest, no chest pain with activity, no edema, no orthopnea, no paroxysmal nocturnal dyspnea - Respiratory Respiratory: dyspnea, dyspnea on exertion, no cough, no pain on inspirtation - Gastrointestinal Gastrointestinal: no abdominal pain, no diarrhea, no nausea - Genitourinary Genitourinary: no dysuria - Musculoskeletal Musculoskeletal: no weakness, no numbness - Integumentary Integumentary: no erythema, no rash - Neurological Neurological: no numbness, no paresthesias, no syncope, no weakness - Psychiatric Psychiatric: no anxiety, no depression - Hematologic/Lymphatic Hematologic/Lymphatic: no easy bleeding, no easy bruising Physical Examination Vital Signs: Vital Signs, Last 4 Hours Temp Pulse Resp BP Pulse Ox 01/06/19 07:38 18 95 01/06/19 07:22 97.8 F 81 16 143/74 92 General appearance: no acute distress, alert Eyes: nonicteric Neck: supple Auscultation: bilateral: clear, diminished breath sounds (lower lung lobes) Cardiovascular: regular rate and rhythm Gastrointestinal: normoactive bowel sounds, soft, non-tender, non-distended Integumentary: normal Extremities: no cyanosis, no edema Musculoskeletal: no deformities normal mental status, pupils equal and round mood appropriate, affect normal Results - Laboratory Findings CBC and BMP: 01/06/19 09:34 01/06/19 09:34 Abnormal lab findings: Abnormal lab results WBC 15.3 K/mcL (4.3-11.1) H 01/06/19 09:34 Hgb 10.8 g/dL (11.5-15.4) L 01/06/19 09:34 Hct 34.9 % (35.3-44.9) L 01/06/19 09:34 MCH 26.5 pg (28.0-33.3) L 01/06/19 09:34 MCHC 30.9 g/dL (31.6-35.5) L 01/06/19 09:34 RDW 15.4 % (11.5-14.5) H 01/06/19 09:34 Neutrophils # 13.7 K/mcL (1.6-8.9) H 01/06/19 09:34 Chloride 95 mEq/L (98-107) L 01/05/19 04:55 Carbon Dioxide 33 mEq/L (23-29) H 01/05/19 04:55 BUN/Creatinine Ratio 32 (6-26) H 01/05/19 04:55 Glucose 175 mg/dL (70-105) H 01/05/19 04:55 Iron 30 mcg/dL (50-170) L 01/05/19 04:55 % Saturation 6 % (15-50) L 01/05/19 04:55 B-Natriuretic Peptide 367 pg/mL (Less than 100) H 01/05/19 04:55 Stool Occult Blood Positive (Negative) A 01/05/19 09:50 - Clinical Findings Intake & Output: Intake & Output 01/05/19 01/06/19 01/06/19 23:59 07:59 15:59 Intake Total 350 / 350 300 / 300 Output Total 100 / 100 0 / 0 700 / 700 Balance 250 / 250 300 / 300 -700 / -700 Weight 93.4 kg Consult Discharge Plan - Plan Instructions: Heart Failure (DC), Chronic Obstructive Pulmonary Disease (DC) Referrals: Winston Mooney MD [Primary Care Provider] - <Kristie Croft - Last Filed: 01/06/19 17:02> Date of Encounter: 01/06/19 All Systems: The remainder of the systems were reviewed and are negative Physical Examination Vital Signs: Vital Signs, Last 4 Hours Temp Pulse Resp BP Pulse Ox 01/06/19 16:27 97.9 F 78 16 112/69 93 01/06/19 15:30 16 90 Results - Laboratory Findings CBC and BMP: 01/06/19 09:34 01/06/19 09:34 Abnormal lab findings: Abnormal lab results WBC 15.3 K/mcL (4.3-11.1) H 01/06/19 09:34 Hgb 10.8 g/dL (11.5-15.4) L 01/06/19 09:34 Hct 34.9 % (35.3-44.9) L 01/06/19 09:34 MCH 26.5 pg (28.0-33.3) L 01/06/19 09:34 MCHC 30.9 g/dL (31.6-35.5) L 01/06/19 09:34 RDW 15.4 % (11.5-14.5) H 01/06/19 09:34 Neutrophils # 13.7 K/mcL (1.6-8.9) H 01/06/19 09:34 Chloride 92 mEq/L (98-107) L 01/06/19 09:34 Carbon Dioxide 34 mEq/L (23-29) H 01/06/19 09:34 BUN 28 mg/dL (8-23) H 01/06/19 09:34 BUN/Creatinine Ratio 33 (6-26) H 01/06/19 09:34 Glucose 217 mg/dL (70-105) H 01/06/19 09:34 Iron 30 mcg/dL (50-170) L 01/05/19 04:55 % Saturation 6 % (15-50) L 01/05/19 04:55 B-Natriuretic Peptide 367 pg/mL (Less than 100) H 01/05/19 04:55 Stool Occult Blood Positive (Negative) A 01/05/19 09:50 - Clinical Findings Intake & Output: Intake & Output 01/06/19 01/06/19 01/06/19 07:59 15:59 23:59 Intake Total 300 / 300 Output Total 0 / 0 1450 / 1450 Balance 300 / 300 -1450 / -1450 Weight 93.4 kg - Attending Attestation I examined this patient and my medical decision-making was reviewed with the Resident Physician. I agree with the documented findings, disposition and treatment plan as described except to the extent set forth below. Patient seen and examined. Labs, radiology, chart personally reviewed. Agree with resident's history and physical, assessment, plan with following comments: BALE SEWER: Patient follows commands, Pulmonary: Acceptable oxygenation and ventilation I had extensive discussion with the patient and her daughter at the bedside regarding her condition and management of her mild pulmonary hypertension based on the right heart catheterization which was done recently. I also discussed with the commercial kitchen service technician. I have seen patient in the clinic and we talked about evaluation after cardioversion and apparently her oxygen saturation has deteriorated after that cardioversion and I still suspect this is group 2 and possibly groups 3 pulmonary hypertension and they still feel there is possibilit y of diastolic heart failure and requires diuresis. I will start patient on Imdur that might help. Patient and her daughter had questions and I have explained to them a second opinion in a center where they deal with pulmonary hypertension and heart failure team is a reasonable thing to do and they both agreed to have that done and I did explain to them if there is no change in the plan then would be more than happy to continue to take care of her. Patient would like to go to [facility] and the hospitalist will arrange this. Thank you for consultation please call for any questions.
[2019-01-06] MEDS ORDERED: Isosorbide MONOnitrate (24 HR) 30 MG TAB.ER.24H PO SCH (10:45)
--- NOTE | 2019-01-06 11:49 | Cardiology Progress Note ---
Date of Encounter: 01/06/19 Time of Encounter: 11:44 Assessment and Plan (1) CHF (congestive heart failure) Current Visit: Yes Status: Acute Acute diastolic CHF. CXR shows interstitial changes throughout the lungs, diffuse infiltrate versus edema. elevated BNP at 259. Last TTE 07/2018-EF 55%-60%. Nomal diastolic function. Mild MR. Mild to moderate tricuspid regurgitation. Mild PAH. Repeat TTE this admission shows EF 60-65%. Indeterminate diastolic function, mild to moderate MR. She did have good response with IV lasix, recommend continuing. Net negative 2660ml. Strict I&O. Low sodium diet. Patient notes she is going to [facility] for further evaluation/ second opinion. Qualifiers: Heart failure type: diastolic Heart failure chronicity: acute Qualified Code(s): I50.31 - Acute diastolic (congestive) heart failure (2) Chronic respiratory failure with hypoxia Current Visit: Yes Status: Acute Patient presented with difficulty breathing.Acute on chronic respiratory distress with hypoxia. States SOB ongoing for months and is pending f/u on recent out-pt work-up. Presents with sudden increase SOB. Noted to have JOANIE/DCCV earlier that day. Concern for diastolic CHF. She may have received IV fluid during procedure. High sodium diet. Noted BNP mildly elevated 327. CXR Showed diffuse infiltrates verses edema. Rales on exam. See plan above. Pulmonology consulted also. Recent abnormal PFT and CT scan with new findings of moderate non-specefic diffuse mosaic ground glass opacities suggesting infiltrate verses inflammation. Now back on Nasal cannula. (3) Atrial fibrillation Current Visit: No Status: Acute S/p successful JOANIE with DCCV to NSR. Remains NSR. On eliquis for past two weeks. Noted Hgb slowly decreasing. Will need to be on AC at least one month after DCCV. Anemia eval in progress by primary team. Noted positive occult stool. Qualifiers: Atrial fibrillation type: paroxysmal Qualified Code(s): I48.0 - Paroxysmal atrial fibrillation Discussion w patient/family: The assessment and plan as outlined above was discussed with the patient and/or family members who expressed understanding and agreement. All questions were answered. Thank you for involving us in the care of your patient. Please call with any questions. Subjective Principal diagnosis: respiratory distress Interval history: Ms. Melendez is a [age] year old female with history of chronic hypoxia on home O2 at 4L, atrial fibrillation s/p DCCV/JOANIE 01/04/19, and HTN. She presented to the hospital with difficulty breathing. States she underwent JOANIE/DCCV with no complication prior to developing SOB later in the evening. Work-up with concern for CHF and underlying lung disease. SOB improved some after IV lasix. Pt and daughter state that are going to [facility] for evaluation/ second opinion. Objective Vital Signs, Last 4 Hours Resp Pulse Ox 01/06/19 11:25 18 95 General: Conversant, No Apparent Distress Cardiac: Normal S1 and S2 Lungs: Other (Respirations easy laying flat in bed) Neuro: Alert and responsive Extremities: No Cyanosis Results 01/06/19 09:34 01/06/19 09:34 Lab Results 01/06/19 01/06/19 09:34 09:34 WBC 15.3 H Hgb 10.8 L Hct 34.9 L Plt Count 233 Sodium 138 Potassium 3.6 Chloride 92 L Carbon Dioxide 34 H BUN 28 H Creatinine 0.84 Glucose 217 H Calcium 9.8 - Imaging and Cardiology Echo: report reviewed - EKG Interpretation EKG results cardiology: personally reviewed Consult Discharge Plan - Plan Referrals: Winston Mooney MD [Primary Care Provider] -
[2019-01-06] MEDS: Lactobacillus 1 EACH CAP.SPRINK PO SCH (13:38)
[2019-01-06] MEDS ORDERED: Pantoprazole 40 MG VIAL IVP SCH (16:00)
[2019-01-06 16:30] VITALS: BP 112/69
[2019-01-06] MEDS ORDERED: SODIUM CHLORIDE/NAHCO3/KCL/PEG 4,000 ML SOLN.RECON PO ONE (17:00)
--- NOTE | 2019-01-06 19:29 | Discharge Summary ---
Date of Encounter: 01/06/19 Time of Encounter: 11:00 - Discharge Diagnosis (1) SOB (shortness of breath) Priority: Primary Status: Chronic (2) Chronic respiratory failure with hypoxia Priority: Primary Status: Acute (3) Anemia Priority: Secondary Status: Acute Qualifiers: Anemia type: iron deficiency Qualified Code(s): D50.9 - Iron deficiency anemia, unspecified (4) Atrial fibrillation Priority: Secondary Status: Acute Qualifiers: Atrial fibrillation type: paroxysmal Qualified Code(s): I48.0 - Paroxysmal atrial fibrillation (5) Fibromyalgia Priority: Secondary Status: Acute Hospital course: Patient is 73-year-old female with past medical history significant for hypertension, GERD, pulmonary hypertension, hyperlipidemia, chronic hypoxemia on 4 L O2 at home, and history of atrial fibrillation status post cardioversion earlier today who presents to the ED with complaints of shortness of breath and mild chest pressure. Patient underwent successful DC cardioversion for atrial fibrillation earlier this morning. Patient arrived to the ER she was stable but still requiring higher than usual baseline O2 requirements so was admitted to medical surgical floor for further management. During patients hospital stay pulmonology was consulted and patient was noted to have some exposure to heavy metal such as aluminum and asbetos but fibrosis is not noted on her CT chest. There was added recommendations to add Imdur to help relax the pulmonary vasculature which will reduce pulmonary vascular resistance subsequently reducing systemic arterial pressure subsequently help her symptoms related to pulmonary hypertension. Patient still short of breath and was recommended by pulmonology to transfer patient to tertiary center for specialists managing pulmonary hypertension. [facility] was contacted and will set the patient. - Time Spent with Patient Total time spent providing and/or coordinating discharge services: Time spent: Less than 30 minutes - Discharge Medications Prescriptions: No Action Atenolol [Tenormin] 50 mg PO DAILY Zolpidem Tartrate [Edluar] 10 mg PO HS Pregabalin [Lyrica] 200 mg PO BID Gabapentin [Neurontin] 300 mg PO BID Duloxetine HCl [Cymbalta] 60 mg PO DAILY Cholecalciferol (Vitamin D3) [Vitamin D3] 5,000 unit PO DAILY NIFEdipine XL (24 HR) [Procardia XL] 30 mg PO DAILY #30 tablet.er Potassium Gluconate 550 mg PO DAILY Furosemide [Lasix] 20 mg PO Q48H Lactobacillus [Culturelle] 1 each PO DAILY Omeprazole [PriLOSEC] 20 mg PO DAILY Fluticasone Propionate Nasal [Flonase] 1 spray NS HS Apixaban [Eliquis] 5 mg PO BID Home Medications: Atenolol [Tenormin] 50 mg PO DAILY 05/27/16 [History] Cholecalciferol (Vitamin D3) [Vitamin D3] 5,000 unit PO DAILY 05/27/16 [History] Duloxetine HCl [Cymbalta] 60 mg PO DAILY 05/27/16 [History] Gabapentin [Neurontin] 300 mg PO BID 05/27/16 [History] NIFEdipine XL (24 HR) [Procardia XL] 30 mg PO DAILY #30 tablet.er 05/27/16 [Rx] Pregabalin [Lyrica] 200 mg PO BID 05/27/16 [History] Zolpidem Tartrate [Edluar] 10 mg PO HS 05/27/16 [History] Furosemide [Lasix] 20 mg PO Q48H 11/22/18 [History] Lactobacillus [Culturelle] 1 each PO DAILY 11/22/18 [History] Potassium Gluconate 550 mg PO DAILY 11/22/18 [History] Apixaban [Eliquis] 5 mg PO BID 01/05/19 [History] Fluticasone Propionate Nasal [Flonase] 1 spray NS HS 01/05/19 [History] Omeprazole [PriLOSEC] 20 mg PO DAILY 01/05/19 [History] Allergies/Adverse Reactions: Allergy/AdvReac Type Severity Reaction Status Date / Time naproxen [From Naprosyn] Allergy Hives Verified 01/04/19 15:19 codeine AdvReac Mild Anxiety Verified 01/04/19 15:19 Date of admission: 01/04/19 19:10 Primary care physician: Winston Mooney MD Consults: 01/04/19 19:14 Consult to Cardiology [CONS] Routine Comment: Consulting Provider: Cardiology [facility] Reason for Consult: acute CHF with respiratory failure following JOANIE/cardioversion Call Completed: No 01/05/19 18:48 Consult to Pulmonology [CONS] Routine Consulting Provider: [facility] Reason for Consult: Acute on chronic hypoxic respiratory failure Call Completed: Yes 01/06/19 09:32 Consult to Gastroenterology [CONS] Routine Consulting Provider: Gastroenterology [place] Reason for Consult: Acute Anemia with occult positive stool Call Completed: Yes - Constitutional Vitals: Temp Pulse Resp BP Pulse Ox 97.9 F 78 16 112/69 93 01/06/19 16:27 01/06/19 16:27 01/06/19 16:27 01/06/19 16:27 01/06/19 16:27 Exam: Gen.: Nonacute distress, alert and oriented 3 ENT: Mucosal membranes moist Respiratory: Lungs are clear to auscultation bilaterally without any wheezing rhonchi or rales Cardiovascular: Normal S1 and S2 regular rate rhythm no murmurs rubs or gallops Abdomen: Soft, nontender and nondistended with positive bowel sounds Extremities: No lower extremity edema Skin: Normal color - Patient Status Disposition: Transfer Other Condition: Undetermined - Discharge Instructions Instructions: Heart Failure (DC), Chronic Obstructive Pulmonary Disease (DC) Follow Up With: Winston Mooney MD [Primary Care Provider] -
== END 2019-01-06 20:45 | disposition other institution (70) | DRG 291 ==
LOC: 2NENU 15:12 → EMEROOARM 15:12 → SUATTDRO 19:10 → 2NENU 19:38
PROVIDERS: ADMIT Internal Medicine; ATTEND Hospitalist

== ENCOUNTER 2019-10-18 17:19 | Inpatient (IN) ==
[2019-10-18] MEDS ORDERED: Ipratropium/Albuterol Neb 3 ML IH ONE (17:29)
[2019-10-18] MEDS ORDERED: methylPREDNISolone 125 MG/2 ML VIAL IVP ONE (17:30)
[2019-10-18 18:27] LABS: Basophils % 0.3 %; Eosinophils # 0.1 K/mcL (0.0-0.6); Eosinophils % 1.5 %; Hematocrit 32.1 % (35.3-44.9); Hemoglobin 10.4 g/dL (11.5-15.4); Immature Granulocytes % 0.3 % (0-4); Lymphocytes # 1.9 K/mcL (0.6-4.6); Lymphocytes % 26.6 %; Mean Corpuscular HGB Conc 32.4 g/dL (31.6-35.5); Mean Corpuscular Hemoglobin 26.5 pg (28.0-33.3); Mean Corpuscular Volume 81.9 fL (83.0-100.0); Mean Platelet Volume 10.7 fL (9.4-12.4); Monocytes # 0.5 K/mcL (0.0-1.3); Monocytes % 6.6 %; Neutrophils # 4.7 K/mcL (1.6-8.9); Platelet Count 137 K/mcL (140-400); Red Blood Count 3.92 M/mcL (3.82-4.97); Red Cell Distribution Width 14.6 % (11.5-14.5); Segmented Neutrophils % 64.7 %; White Blood Count 7.3 K/mcL (4.3-11.1)
[2019-10-18 18:57] LABS: Alanine Aminotransferase 9 Units/L (7-52); Albumin 3.5 g/dL (3.5-5.7); Albumin/Globulin Ratio 1.2 (1.1-2.2); Alkaline Phosphatase 56 Units/L (34-104); Aspartate Amino Transferase 15 Units/L (13-39); BUN/Creatinine Ratio 36 (6-26); Bilirubin,Total 0.4 mg/dL (0.3-1.0); Blood Urea Nitrogen 20 mg/dL (8-23); Calcium 8.9 mg/dL (8.6-10.3); Carbon Dioxide 35 mEq/L (23-29); Chloride 93 mEq/L (98-107); Globulin 2.9 g/dL (2.4-3.5); Glucose 112 mg/dL (70-105); Osmolality,Calculated 289 (280-300); Potassium 3.4 mEq/L (3.5-5.1); Sodium 138 mEq/L (136-145); Total Protein 6.4 g/dL (6.4-8.9); eGFR For African Americans > 60 (> 60); eGFR For Non-African Americans > 60 (> 60)
[2019-10-18 18:58] LABS: Troponin I 0.12 ng/mL (< 0.04)
[2019-10-18] MEDS ORDERED: Naloxone 0.4 MG/ML INJ IVP PRN (22:30)
[2019-10-18] MEDS ORDERED: Aspirin 325 MG TABLET PO ONE (22:43)
[2019-10-18] MEDS ORDERED: Apixaban 5 MG TABLET PO ONE ×2 (23:25→23:30)
[2019-10-18] MEDS ORDERED: Azithromycin 250 MG TABLET PO ONE (23:43)
[2019-10-18] MEDS: Ipratropium/Albuterol Neb 3 ML IH SCH (23:51)
[2019-10-19] MEDS: Ipratropium/Albuterol Neb 3 ML IH SCH ×6 (04:17→23:40)
[2019-10-19 06:07] LABS: Basophils % 0.2 %; Hematocrit 33.5 % (35.3-44.9); Hemoglobin 10.6 g/dL (11.5-15.4); Immature Granulocytes % 0.6 % (0-4); Lymphocytes # 0.9 K/mcL (0.6-4.6); Lymphocytes % 15.1 %; Mean Corpuscular HGB Conc 31.6 g/dL (31.6-35.5); Mean Corpuscular Hemoglobin 26.4 pg (28.0-33.3); Mean Corpuscular Volume 83.5 fL (83.0-100.0); Mean Platelet Volume 9.9 fL (9.4-12.4); Monocytes # 0.1 K/mcL (0.0-1.3); Monocytes % 1.6 %; Neutrophils # 5.1 K/mcL (1.6-8.9); Platelet Count 192 K/mcL (140-400); Red Blood Count 4.01 M/mcL (3.82-4.97); Red Cell Distribution Width 14.5 % (11.5-14.5); Segmented Neutrophils % 82.5 %; White Blood Count 6.2 K/mcL (4.3-11.1)
[2019-10-19 06:31] LABS: Alanine Aminotransferase 9 Units/L (7-52); Albumin 3.7 g/dL (3.5-5.7); Albumin/Globulin Ratio 1.2 (1.1-2.2); Alkaline Phosphatase 58 Units/L (34-104); Aspartate Amino Transferase 13 Units/L (13-39); BUN/Creatinine Ratio 33 (6-26); Bilirubin,Total 0.3 mg/dL (0.3-1.0); Blood Urea Nitrogen 17 mg/dL (8-23); Calcium 8.8 mg/dL (8.6-10.3); Carbon Dioxide 37 mEq/L (23-29); Chloride 92 mEq/L (98-107); Glucose 223 mg/dL (70-105); Osmolality,Calculated 298 (280-300); Potassium 3.3 mEq/L (3.5-5.1); Sodium 140 mEq/L (136-145); Total Protein 6.7 g/dL (6.4-8.9); eGFR For African Americans > 60 (> 60); eGFR For Non-African Americans > 60 (> 60)
[2019-10-19] MEDS ORDERED: Potassium Chloride Elixir 20 MEQ/15 ML UDC PO ONE (07:24)
[2019-10-19] MEDS: Azithromycin 250 MG TABLET PO SCH (07:51)
[2019-10-19] MEDS: MethylPREDNISolone 40 MG/ML VIAL IVP SCH ×2 (07:51→18:15)
[2019-10-19] MEDS ORDERED: predniSONE 20 MG TABLET PO SCH (09:00)
[2019-10-19] MEDS ORDERED: Azithromycin 250 MG TABLET PO SCH ×2 (09:00→17:00)
[2019-10-19] MEDS ORDERED: Ondansetron 4 MG/2 ML VIAL IVP PRN (11:44)
[2019-10-19] MEDS ORDERED: Azithromycin 500 MG in 0.9 % Sodium Chloride 250 ML IVPB SCH (17:00)
[2019-10-19] MEDS: Gabapentin 300 MG CAPSULE PO SCH (18:16)
[2019-10-19] MEDS: Pregabalin 50 MG CAPSULE PO SCH (18:16)
[2019-10-19] MEDS: Apixaban 5 MG TABLET PO SCH (21:49)
[2019-10-20 00:48] LABS: ABG Base Excess 14 mEq/L (-2 to 3); ABG HCO3 42 mEq/L (21-27); ABG Oxygen Saturation 87 % (95-98); ABG PCO2 71 mmHg (35-45); ABG PH 7.38 pH Units (7.32-7.45); ABG PO2 57 mmHg (85-104); ABG TCO2 44 mEq/L (20-26)
[2019-10-20] MEDS: Ipratropium/Albuterol Neb 3 ML IH SCH ×5 (03:58→20:02)
[2019-10-20 05:21] LABS: Hematocrit 33.2 % (35.3-44.9); Hemoglobin 9.9 g/dL (11.5-15.4); Mean Corpuscular HGB Conc 29.8 g/dL (31.6-35.5); Mean Corpuscular Hemoglobin 25.8 pg (28.0-33.3); Mean Corpuscular Volume 86.7 fL (83.0-100.0); Mean Platelet Volume 10.8 fL (9.4-12.4); Platelet Count 201 K/mcL (140-400); Red Blood Count 3.83 M/mcL (3.82-4.97); Red Cell Distribution Width 14.7 % (11.5-14.5); White Blood Count 8.8 K/mcL (4.3-11.1)
[2019-10-20] MEDS: MethylPREDNISolone 40 MG/ML VIAL IVP SCH ×2 (05:57→16:45)
[2019-10-20 06:02] LABS: Blood Urea Nitrogen 19 mg/dL (8-23); Calcium 9.1 mg/dL (8.6-10.3); Chloride 96 mEq/L (98-107); Glucose 145 mg/dL (70-105); Osmolality,Calculated 295 (280-300); Potassium 3.8 mEq/L (3.5-5.1); Sodium 140 mEq/L (136-145)
[2019-10-20 06:31] LABS: BUN/Creatinine Ratio 33 (6-26); Carbon Dioxide 36 mEq/L (23-29); eGFR For African Americans > 60 (> 60); eGFR For Non-African Americans > 60 (> 60)
[2019-10-20] MEDS ORDERED: Fluticasone Propionate Nasal 50 MCG/SPRAY BOTTLE NS PRN (07:32)
[2019-10-20] MEDS ORDERED: Nitroglycerin 0.4 MG TAB.SUBL SL PRN (07:32)
[2019-10-20] MEDS ORDERED: Perflutren Lipid Microsphere 1.3 ML in 0.9 % Sodium Chloride 8.7 ML IVP ONE (08:52)
[2019-10-20 08:58] LABS: Adenovirus Not Detected (Not Detect); Bordetella Pertussis Not Detected (Not Detect); Chlamydophila pneumoniae Not Detected (Not Detect); Coronavirus 229E Not Detected (Not Detect); Coronavirus HKU1 Not Detected (Not Detect); Coronavirus NL63 Not Detected (Not Detect); Coronavirus OC43 Not Detected (Not Detect); Human Metapneumovirus Not Detected (Not Detect); Human Rhinovirus/Enterovirus Not Detected (Not Detect); Influenza A Subtype 2009 H1 Not Detected (Not Detect); Influenza A Untypeable Not Detected (Not Detect); Influenza B Not Detected (Not Detect); Mycoplasma pneumoniae Not Detected (Not Detect); Parainfluenza Virus 1 Not Detected (Not Detect); Parainfluenza Virus 2 Not Detected (Not Detect); Parainfluenza Virus 3 Not Detected (Not Detect); Parainfluenza Virus 4 Not Detected (Not Detect); Respiratory Syncytial Virus DETECTED (Not Detect)
[2019-10-20] MEDS: Furosemide 20 MG TABLET PO SCH (09:44)
[2019-10-20] MEDS: Azithromycin 250 MG TABLET PO SCH (09:44)
[2019-10-20] MEDS: Gabapentin 300 MG CAPSULE PO SCH ×2 (09:44→16:44)
[2019-10-20] MEDS: Apixaban 5 MG TABLET PO SCH ×2 (09:44→20:41)
[2019-10-20] MEDS: Cholecalciferol (D-3) 1,000 UNIT (25MCG) TABLET PO SCH (09:45)
[2019-10-20] MEDS: Pregabalin 50 MG CAPSULE PO SCH ×2 (09:45→16:44)
[2019-10-21] MEDS: Ipratropium/Albuterol Neb 3 ML IH SCH ×6 (00:01→19:40)
[2019-10-21 04:24] LABS: VBG HCO3 38 mEq/L (21-27); VBG PCO2 63 mmHg (41-51); VBG PH 7.39 pH Units (7.32-7.42); VBG PO2 117 mmHg (25-50)
[2019-10-21 04:31] LABS: Hematocrit 34.4 % (35.3-44.9); Hemoglobin 10.4 g/dL (11.5-15.4); Mean Corpuscular HGB Conc 30.2 g/dL (31.6-35.5); Mean Corpuscular Hemoglobin 26.3 pg (28.0-33.3); Mean Corpuscular Volume 87.1 fL (83.0-100.0); Mean Platelet Volume 10.4 fL (9.4-12.4); Platelet Count 228 K/mcL (140-400); Red Blood Count 3.95 M/mcL (3.82-4.97); Red Cell Distribution Width 14.5 % (11.5-14.5); White Blood Count 10.1 K/mcL (4.3-11.1)
[2019-10-21 04:55] LABS: BUN/Creatinine Ratio 44 (6-26); Blood Urea Nitrogen 24 mg/dL (8-23); Calcium 9.2 mg/dL (8.6-10.3); Carbon Dioxide 37 mEq/L (23-29); Chloride 96 mEq/L (98-107); Glucose 137 mg/dL (70-105); Osmolality,Calculated 292 (280-300); Sodium 138 mEq/L (136-145); eGFR For African Americans > 60 (> 60); eGFR For Non-African Americans > 60 (> 60)
[2019-10-21] MEDS: MethylPREDNISolone 40 MG/ML VIAL IVP SCH (05:27)
[2019-10-21] MEDS: Azithromycin 250 MG TABLET PO SCH (07:42)
[2019-10-21] MEDS: Gabapentin 300 MG CAPSULE PO SCH ×2 (07:42→15:14)
[2019-10-21] MEDS: Cholecalciferol (D-3) 1,000 UNIT (25MCG) TABLET PO SCH (07:42)
[2019-10-21] MEDS: Apixaban 5 MG TABLET PO SCH ×2 (07:42→21:44)
[2019-10-21] MEDS: Furosemide 20 MG TABLET PO SCH (07:42)
[2019-10-21] MEDS: Pregabalin 50 MG CAPSULE PO SCH ×2 (07:42→15:14)
[2019-10-22] MEDS: Ipratropium/Albuterol Neb 3 ML IH SCH ×3 (02:25→07:21)
[2019-10-22 06:22] LABS: VBG HCO3 37 mEq/L (21-27); VBG PCO2 58 mmHg (41-51); VBG PH 7.41 pH Units (7.32-7.42); VBG PO2 133 mmHg (25-50)
[2019-10-22 06:39] LABS: BUN/Creatinine Ratio 38 (6-26); Blood Urea Nitrogen 23 mg/dL (8-23); Calcium 8.5 mg/dL (8.6-10.3); Carbon Dioxide 38 mEq/L (23-29); Chloride 95 mEq/L (98-107); Glucose 100 mg/dL (70-105); Osmolality,Calculated 292 (280-300); Potassium 3.5 mEq/L (3.5-5.1); Sodium 139 mEq/L (136-145); eGFR For African Americans > 60 (> 60); eGFR For Non-African Americans > 60 (> 60)
[2019-10-22] MEDS ORDERED: predniSONE 20 MG TABLET PO SCH (09:00)
[2019-10-22] MEDS: Furosemide 20 MG TABLET PO SCH (09:24)
[2019-10-22] MEDS: Azithromycin 250 MG TABLET PO SCH (09:24)
[2019-10-22] MEDS: Pregabalin 50 MG CAPSULE PO SCH (09:24)
[2019-10-22] MEDS: Apixaban 5 MG TABLET PO SCH (09:25)
[2019-10-22] MEDS: Gabapentin 300 MG CAPSULE PO SCH (09:25)
[2019-10-22] MEDS: Cholecalciferol (D-3) 1,000 UNIT (25MCG) TABLET PO SCH (09:25)
[2019-10-22] MEDS ORDERED: FLU Vac QV 19-20 (6Month+)/PF 0.5 ML SYRINGE IM ONE (11:07)
[2019-10-22] MEDS ORDERED: Ondansetron ODT 4 MG TAB.RAPDIS SL ONE (11:57)
[2019-10-22 12:15] VITALS: BP 124/77
== END 2019-10-22 13:15 | disposition home or self-care (01) | DRG 190 ==
LOC: EMEROOARM 17:19 → 2ANU 17:19 → SUATTDRO 20:06 → 2ANU 20:38
PROVIDERS: ADMIT Family Medicine; ATTEND Internal Medicine

== ENCOUNTER 2020-01-31 15:34 | Inpatient (IN) ==
[2020-01-31] MEDS ORDERED: cefTRIAXone 2,000 MG in Water for inj. (sterile) 10 ML IVP ONE (15:56)
[2020-01-31] MEDS ORDERED: Isovue-370 500 ML BOTTLE IVP ONE (16:02)
[2020-01-31] MEDS ORDERED: Furosemide 40 MG/4 ML VIAL IVP ONE (16:46)
[2020-01-31 16:47] LABS: Basophils % 0.1 %; Eosinophils % 0.4 %; Hematocrit 26.9 % (35.3-44.9); Hemoglobin 7.6 g/dL (11.5-15.4); Immature Granulocytes % 0.6 % (0-4); Lymphocytes # 0.8 K/mcL (0.6-4.6); Lymphocytes % 8.9 %; Mean Corpuscular HGB Conc 28.3 g/dL (31.6-35.5); Mean Corpuscular Hemoglobin 23.5 pg (28.0-33.3); Mean Platelet Volume 10.3 fL (9.4-12.4); Monocytes # 0.4 K/mcL (0.0-1.3); Monocytes % 3.9 %; Neutrophils # 7.8 K/mcL (1.6-8.9); Platelet Count 169 K/mcL (140-400); Red Blood Count 3.24 M/mcL (3.82-4.97); Red Cell Distribution Width 15.7 % (11.5-14.5); Segmented Neutrophils % 86.1 %
[2020-01-31] MEDS: Nitroglycerin 0.4 MG TAB.SUBL SL SCH ×2 (17:09→22:24)
[2020-01-31 17:12] LABS: Hypochromasia Present (Not Present); Polychromasia 2+ (Not Present)
[2020-01-31 17:13] LABS: Platelet Estimate Normal (Normal); Stomatocytes 1+ (Not Present)
[2020-01-31 17:15] LABS: BUN/Creatinine Ratio 27 (6-26); Blood Urea Nitrogen 16 mg/dL (8-23); Calcium 8.8 mg/dL (8.6-10.3); Carbon Dioxide 43 mEq/L (23-29); Chloride 91 mEq/L (98-107); Glucose 228 mg/dL (70-105); Osmolality,Calculated 294 (280-300); Potassium 3.3 mEq/L (3.5-5.1); Sodium 138 mEq/L (136-145); Troponin I < 0.03 ng/mL (< 0.04); eGFR For African Americans > 60 (> 60); eGFR For Non-African Americans > 60 (> 60)
[2020-01-31] MEDS ORDERED: Azithromycin 500 MG in D5% in Water 250 ML IVPB ONE (19:12)
[2020-01-31] MEDS ORDERED: Ipratropium/Albuterol Neb 3 ML IH PRN (20:58)
[2020-01-31] MEDS ORDERED: Naloxone 0.4 MG/ML INJ IVP PRN (20:59)
[2020-01-31] MEDS ORDERED: Ondansetron 4 MG/2 ML VIAL IVP PRN (20:59)
[2020-01-31] MEDS ORDERED: Acetaminophen 325 MG TABLET PO PRN (20:59)
[2020-01-31] MEDS ORDERED: Dextrose Gel 15 GM/37.5 ML TUBE PO PRN ×2 (21:09)
[2020-01-31] MEDS ORDERED: D5% in Water 1,000 ML IVC PRN (21:09)
[2020-01-31] MEDS ORDERED: *HR* Dextrose 50 % in Water (Syg) 50 ML SYRINGE IVP PRN (21:09)
[2020-01-31] MEDS ORDERED: Insulin LISPRO 300 UNITS/3 ML VIAL SQ SCH (21:15)
[2020-01-31] MEDS ORDERED: methylPREDNISolone 125 MG/2 ML VIAL IVP ONE (21:54)
[2020-01-31] MEDS ORDERED: Perflutren Lipid Microsphere 1.3 ML in 0.9 % Sodium Chloride 8.7 ML IVP ONE (22:02)
[2020-01-31] MEDS ORDERED: Melatonin 3 MG TABLET PO PRN (22:19)
[2020-01-31] MEDS ORDERED: Potassium Phosphate 44 MEQ in 0.9 % Sodium Chloride 250 ML IVPB PRN (22:20)
[2020-01-31] MEDS: *HR* Heparin 5,000 UNIT/ML VIAL SQ SCH (23:05)
[2020-02-01] MEDS ORDERED: Furosemide 20 MG TABLET PO ONE (00:27)
[2020-02-01 04:08] LABS: Segmented Neutrophils % 87.9 %
[2020-02-01 04:09] LABS: Basophils % 0.2 %; Hematocrit 29.1 % (35.3-44.9); Hemoglobin 8.2 g/dL (11.5-15.4); Immature Granulocytes % 2.5 % (0-4); Lymphocytes # 0.8 K/mcL (0.6-4.6); Lymphocytes % 8.7 %; Mean Corpuscular HGB Conc 28.2 g/dL (31.6-35.5); Mean Corpuscular Hemoglobin 23.1 pg (28.0-33.3); Mean Platelet Volume 10.7 fL (9.4-12.4); Monocytes # 0.1 K/mcL (0.0-1.3); Monocytes % 0.7 %; Neutrophils # 8.5 K/mcL (1.6-8.9); Nucleated Red Blood Cells 0.3 /100 WBC (0); Platelet Count 200 K/mcL (140-400); Red Blood Count 3.55 M/mcL (3.82-4.97); Red Cell Distribution Width 16.3 % (11.5-14.5); White Blood Count 9.7 K/mcL (4.3-11.1)
[2020-02-01 04:27] LABS: % Iron Saturation 4 % (15-50); Iron 19 mcg/dL (50-170); Transferrin 333 mg/dL (203-362)
[2020-02-01 04:29] LABS: BUN/Creatinine Ratio 25 (6-26); Blood Urea Nitrogen 13 mg/dL (8-23); Calcium 9.1 mg/dL (8.6-10.3); Carbon Dioxide 42 mEq/L (23-29); Chloride 89 mEq/L (98-107); Glucose 171 mg/dL (70-105); Magnesium 1.8 mg/dL (1.6-2.6); Osmolality,Calculated 290 (280-300); Phosphorous 3.4 mg/dL (2.7-4.5); Sodium 138 mEq/L (136-145); eGFR For African Americans > 60 (> 60); eGFR For Non-African Americans > 60 (> 60)
[2020-02-01 04:59] LABS: Anisocytosis 1+ (Not Present); Platelet Estimate Normal (Normal); Polychromasia 1+ (Not Present)
[2020-02-01] MEDS: *HR* Heparin 5,000 UNIT/ML VIAL SQ SCH (05:08)
[2020-02-01] MEDS: methylPREDNISolone 125 MG/2 ML VIAL IVP SCH ×2 (05:09→11:51)
[2020-02-01 05:12] LABS: VBG Ionized Calcium 1.04 mmol/L (1.15-1.35)
[2020-02-01] MEDS: Calcium Gluconate 1gm/50mL 1 GM/50 ML BAG IVPB PRN ×2 (06:34→15:10)
[2020-02-01] MEDS: Nitroglycerin 0.4 MG TAB.SUBL SL SCH (06:54)
[2020-02-01] MEDS: Calcium Gluconate 1gm/50mL 1 GM/50 ML BAG IVPB SCH ×2 (07:24→08:44)
[2020-02-01] MEDS: Insulin LISPRO 300 UNITS/3 ML VIAL SQ SCH ×4 (08:58→20:33)
[2020-02-01] MEDS ORDERED: cefTRIAXone 1,000 MG in 0.9 % Sodium Chloride Mini Bag 100 ML IVPB SCH (09:00)
[2020-02-01] MEDS ORDERED: Azithromycin 500 MG in 0.9 % Sodium Chloride 250 ML IVPB SCH (09:00)
[2020-02-01 09:11] LABS: Adenovirus Not Detected (Not Detect); Bordetella Pertussis Not Detected (Not Detect); Chlamydophila pneumoniae Not Detected (Not Detect); Coronavirus 229E Not Detected (Not Detect); Coronavirus HKU1 Not Detected (Not Detect); Coronavirus NL63 Not Detected (Not Detect); Coronavirus OC43 Not Detected (Not Detect); Human Metapneumovirus Not Detected (Not Detect); Human Rhinovirus/Enterovirus Not Detected (Not Detect); Influenza A Subtype 2009 H1 Not Detected (Not Detect); Influenza B Not Detected (Not Detect); Mycoplasma pneumoniae Not Detected (Not Detect); Parainfluenza Virus 1 Not Detected (Not Detect); Parainfluenza Virus 2 Not Detected (Not Detect); Parainfluenza Virus 3 Not Detected (Not Detect); Parainfluenza Virus 4 Not Detected (Not Detect); Respiratory Syncytial Virus Not Detected (Not Detect)
[2020-02-01] MEDS ORDERED: Furosemide 40 MG/4 ML VIAL IVP ONE ×3 (09:12→15:31)
[2020-02-01] MEDS ORDERED: Fluticasone Propionate Nasal 50 MCG/SPRAY BOTTLE NS PRN ×2 (12:58→15:31)
[2020-02-01 13:17] LABS: VBG Ionized Calcium 0.92 mmol/L (1.15-1.35)
[2020-02-01] MEDS ORDERED: Potassium Phosphate 44 MEQ in 0.9 % Sodium Chloride 250 ML IVPB PRN (15:31)
[2020-02-01] MEDS ORDERED: Ondansetron 4 MG/2 ML VIAL IVP PRN (15:31)
[2020-02-01] MEDS ORDERED: *HR* Dextrose 50 % in Water (Syg) 50 ML SYRINGE IVP PRN (15:31)
[2020-02-01] MEDS ORDERED: Naloxone 0.4 MG/ML INJ IVP PRN (15:31)
[2020-02-01] MEDS ORDERED: Calcium Gluconate 1gm/50mL 1 GM/50 ML BAG IVPB PRN (15:31)
[2020-02-01] MEDS ORDERED: Ipratropium/Albuterol Neb 3 ML IH PRN (15:31)
[2020-02-01] MEDS ORDERED: D5% in Water 1,000 ML IVC PRN (15:31)
[2020-02-01] MEDS ORDERED: Dextrose Gel 15 GM/37.5 ML TUBE PO PRN ×2 (15:31)
[2020-02-01] MEDS ORDERED: Acetaminophen 325 MG TABLET PO PRN (15:31)
[2020-02-01] MEDS: Pregabalin 50 MG CAPSULE PO SCH (20:37)
[2020-02-01] MEDS: Apixaban 5 MG TABLET PO SCH (20:38)
[2020-02-01] MEDS: Sennosides/Docusate Sodium TABLET PO SCH (20:38)
[2020-02-01] MEDS: Gabapentin 300 MG CAPSULE PO SCH (20:38)
[2020-02-01] MEDS: Melatonin 3 MG TABLET PO PRN (20:44)
[2020-02-01] MEDS ORDERED: Apixaban 5 MG TABLET PO SCH (21:00)
[2020-02-01] MEDS ORDERED: Sennosides/Docusate Sodium TABLET PO SCH (21:00)
[2020-02-01] MEDS ORDERED: Pregabalin 50 MG CAPSULE PO SCH (21:00)
[2020-02-01] MEDS ORDERED: Gabapentin 300 MG CAPSULE PO SCH (21:00)
[2020-02-02 01:30] LABS: Hematocrit 26.4 % (35.3-44.9); Hemoglobin 7.6 g/dL (11.5-15.4); Mean Corpuscular HGB Conc 28.8 g/dL (31.6-35.5); Mean Corpuscular Hemoglobin 23.5 pg (28.0-33.3); Mean Corpuscular Volume 81.5 fL (83.0-100.0); Mean Platelet Volume 11.1 fL (9.4-12.4); Platelet Count 218 K/mcL (140-400); Red Blood Count 3.24 M/mcL (3.82-4.97); White Blood Count 11.6 K/mcL (4.3-11.1)
[2020-02-02 01:49] LABS: BUN/Creatinine Ratio 36 (6-26); Blood Urea Nitrogen 21 mg/dL (8-23); Calcium 9.3 mg/dL (8.6-10.3); Carbon Dioxide > 45 mEq/L (23-29); Chloride 90 mEq/L (98-107); Glucose 127 mg/dL (70-105); Magnesium 2.2 mg/dL (1.6-2.6); Osmolality,Calculated 289 (280-300); Phosphorous 4.1 mg/dL (2.7-4.5); Potassium 4.3 mEq/L (3.5-5.1); Sodium 137 mEq/L (136-145); eGFR For African Americans > 60 (> 60); eGFR For Non-African Americans > 60 (> 60)
[2020-02-02] MEDS: Pregabalin 50 MG CAPSULE PO SCH ×2 (07:30→20:16)
[2020-02-02] MEDS: Apixaban 5 MG TABLET PO SCH ×2 (07:31→20:16)
[2020-02-02] MEDS: Gabapentin 300 MG CAPSULE PO SCH ×2 (07:31→20:16)
[2020-02-02] MEDS: predniSONE 20 MG TABLET PO SCH (07:32)
[2020-02-02] MEDS: Sennosides/Docusate Sodium TABLET PO SCH ×2 (07:32→20:16)
[2020-02-02] MEDS: Insulin LISPRO 300 UNITS/3 ML VIAL SQ SCH ×4 (07:37→20:10)
[2020-02-02] MEDS ORDERED: Azithromycin 500 MG in 0.9 % Sodium Chloride 250 ML IVPB SCH (09:00)
[2020-02-02] MEDS ORDERED: predniSONE 20 MG TABLET PO SCH (09:00)
[2020-02-02] MEDS: Budesonide Neb 0.5 MG/2 ML IH SCH ×2 (15:43→21:58)
[2020-02-03 01:36] LABS: Mean Corpuscular HGB Conc 28.2 g/dL (31.6-35.5)
[2020-02-03 01:37] LABS: Hemoglobin 7.9 g/dL (11.5-15.4); Mean Corpuscular Hemoglobin 23.4 pg (28.0-33.3); Mean Corpuscular Volume 83.1 fL (83.0-100.0); Mean Platelet Volume 10.6 fL (9.4-12.4); Platelet Count 175 K/mcL (140-400); Red Blood Count 3.37 M/mcL (3.82-4.97); Red Cell Distribution Width 16.3 % (11.5-14.5); White Blood Count 10.8 K/mcL (4.3-11.1)
[2020-02-03 02:08] LABS: BUN/Creatinine Ratio 53 (6-26); Blood Urea Nitrogen 26 mg/dL (8-23); Calcium 9.2 mg/dL (8.6-10.3); Carbon Dioxide > 45 mEq/L (23-29); Chloride 93 mEq/L (98-107); Glucose 84 mg/dL (70-105); Magnesium 2.2 mg/dL (1.6-2.6); Osmolality,Calculated 296 (280-300); Phosphorous 3.9 mg/dL (2.7-4.5); Sodium 141 mEq/L (136-145); eGFR For African Americans > 60 (> 60); eGFR For Non-African Americans > 60 (> 60)
[2020-02-03 04:04] LABS: ABG Base Excess 24 mEq/L (-2 to 3); ABG HCO3 52 mEq/L (21-27); ABG Oxygen Saturation 81 % (95-98); ABG PCO2 83 mmHg (35-45); ABG PH 7.41 pH Units (7.32-7.45); ABG PO2 49 mmHg (85-104); ABG TCO2 > 50 mEq/L (20-26)
[2020-02-03] MEDS: Insulin LISPRO 300 UNITS/3 ML VIAL SQ SCH ×4 (07:59→20:53)
[2020-02-03] MEDS: Sennosides/Docusate Sodium TABLET PO SCH ×2 (08:18→20:53)
[2020-02-03] MEDS: Apixaban 5 MG TABLET PO SCH ×2 (08:18→20:53)
[2020-02-03] MEDS: predniSONE 20 MG TABLET PO SCH (08:18)
[2020-02-03] MEDS: Pregabalin 50 MG CAPSULE PO SCH ×2 (08:18→20:53)
[2020-02-03] MEDS: Gabapentin 300 MG CAPSULE PO SCH ×2 (08:19→20:53)
[2020-02-03] MEDS: Budesonide Neb 0.5 MG/2 ML IH SCH ×2 (10:47→22:00)
[2020-02-03 10:59] LABS: Acinetobacter baumannii by PCR Not Detected (Not Detect); Enterobacter cloacae Cmplx PCR Not Detected (Not Detect); Enterobacteriaceae by PCR Not Detected (Not Detect); Enterococcus by PCR Not Detected (Not Detect); Escherichia coli by PCR Not Detected (Not Detect); Klebsiella oxytoca by PCR Not Detected (Not Detect); Klebsiella pneumoniae by PCR Not Detected (Not Detect); Proteus by PCR Not Detected (Not Detect); Serratia marcescens by PCR Not Detected (Not Detect); Staphylococcus aureus by PCR Not Detected (Not Detect); Staphylococcus by PCR DETECTED (Not Detect); Streptococcus agalactiae(B)PCR Not Detected (Not Detect); Streptococcus by PCR Not Detected (Not Detect); Streptococcus pneumoniae PCR Not Detected (Not Detect); Streptococcus pyogenes (A) PCR Not Detected (Not Detect); mecA Methicillin-Resist Gene Not Detected (Not Detect)
[2020-02-03 11:00] LABS: Candida albicans by PCR Not Detected (Not Detect); Candida glabrata by PCR Not Detected (Not Detect); Candida krusei by PCR Not Detected (Not Detect); Candida parapsilosis by PCR Not Detected (Not Detect); Candida tropicalis by PCR Not Detected (Not Detect); Pseudomonas aeruginosa by PCR Not Detected (Not Detect)
[2020-02-03] MEDS ORDERED: Iron Sucrose Complex 200 MG in 0.9 % Sodium Chloride 100 ML IVPB ONE (15:00)
[2020-02-04 05:11] LABS: Hemoglobin 8.3 g/dL (11.5-15.4); Mean Corpuscular HGB Conc 28.6 g/dL (31.6-35.5); Mean Corpuscular Hemoglobin 23.5 pg (28.0-33.3); Mean Corpuscular Volume 82.2 fL (83.0-100.0); Mean Platelet Volume 10.7 fL (9.4-12.4); Platelet Count 170 K/mcL (140-400); Red Blood Count 3.53 M/mcL (3.82-4.97); Red Cell Distribution Width 16.5 % (11.5-14.5)
[2020-02-04 05:22] LABS: % Iron Saturation 74 % (15-50); Iron 289 mcg/dL (50-170); Transferrin 278 mg/dL (203-362)
[2020-02-04 05:29] LABS: BUN/Creatinine Ratio 35 (6-26); Blood Urea Nitrogen 18 mg/dL (8-23); Calcium 9.2 mg/dL (8.6-10.3); Carbon Dioxide 43 mEq/L (23-29); Chloride 94 mEq/L (98-107); Glucose 107 mg/dL (70-105); Magnesium 2.1 mg/dL (1.6-2.6); Osmolality,Calculated 294 (280-300); Phosphorous 4.2 mg/dL (2.7-4.5); Potassium 3.4 mEq/L (3.5-5.1); Sodium 141 mEq/L (136-145); eGFR For African Americans > 60 (> 60); eGFR For Non-African Americans > 60 (> 60)
[2020-02-04] MEDS: Insulin LISPRO 300 UNITS/3 ML VIAL SQ SCH ×4 (07:47→20:14)
[2020-02-04] MEDS: Sennosides/Docusate Sodium TABLET PO SCH ×2 (09:05→20:15)
[2020-02-04] MEDS: Pregabalin 50 MG CAPSULE PO SCH ×2 (09:05→20:16)
[2020-02-04] MEDS: Apixaban 5 MG TABLET PO SCH ×2 (09:05→20:16)
[2020-02-04] MEDS: predniSONE 20 MG TABLET PO SCH (09:05)
[2020-02-04] MEDS: Gabapentin 300 MG CAPSULE PO SCH ×2 (09:05→20:16)
[2020-02-04] MEDS: Budesonide Neb 0.5 MG/2 ML IH SCH ×2 (10:29→20:22)
[2020-02-04] MEDS: *HR* LORazepam 0.5 MG TABLET PO PRN (12:08)
[2020-02-05 04:58] LABS: Hemoglobin 8.4 g/dL (11.5-15.4)
[2020-02-05 04:59] LABS: Hematocrit 28.9 % (35.3-44.9); Mean Corpuscular HGB Conc 29.1 g/dL (31.6-35.5); Mean Corpuscular Hemoglobin 23.7 pg (28.0-33.3); Mean Corpuscular Volume 81.6 fL (83.0-100.0); Mean Platelet Volume 9.6 fL (9.4-12.4); Platelet Count 178 K/mcL (140-400); Red Blood Count 3.54 M/mcL (3.82-4.97); Red Cell Distribution Width 16.4 % (11.5-14.5); White Blood Count 9.3 K/mcL (4.3-11.1)
[2020-02-05 05:23] LABS: Alanine Aminotransferase 9 Units/L (7-52); Albumin 3.3 g/dL (3.5-5.7); Albumin/Globulin Ratio 1.1 (1.1-2.2); Alkaline Phosphatase 48 Units/L (34-104); Aspartate Amino Transferase 12 Units/L (13-39); BUN/Creatinine Ratio 43 (6-26); Bilirubin,Total 0.3 mg/dL (0.3-1.0); Blood Urea Nitrogen 20 mg/dL (8-23); Calcium 9.1 mg/dL (8.6-10.3); Carbon Dioxide 42 mEq/L (23-29); Chloride 96 mEq/L (98-107); Globulin 2.9 g/dL (2.4-3.5); Glucose 106 mg/dL (70-105); Magnesium 2.2 mg/dL (1.6-2.6); Osmolality,Calculated 295 (280-300); Potassium 3.6 mEq/L (3.5-5.1); Sodium 141 mEq/L (136-145); Total Protein 6.2 g/dL (6.4-8.9); eGFR For African Americans > 60 (> 60); eGFR For Non-African Americans > 60 (> 60)
[2020-02-05] MEDS: Insulin LISPRO 300 UNITS/3 ML VIAL SQ SCH ×4 (07:24→21:07)
[2020-02-05] MEDS: Sennosides/Docusate Sodium TABLET PO SCH ×2 (09:14→21:10)
[2020-02-05] MEDS: Apixaban 5 MG TABLET PO SCH ×2 (09:14→21:09)
[2020-02-05] MEDS: Pregabalin 50 MG CAPSULE PO SCH ×2 (09:14→21:08)
[2020-02-05] MEDS: Gabapentin 300 MG CAPSULE PO SCH ×2 (09:14→21:08)
[2020-02-05] MEDS: predniSONE 20 MG TABLET PO SCH (09:14)
[2020-02-05] MEDS: *HR* Promethazine 25 MG/ML VIAL IVP PRN (09:27)
[2020-02-05] MEDS: Budesonide Neb 0.5 MG/2 ML IH SCH ×2 (10:43→19:56)
[2020-02-05] MEDS: Melatonin 3 MG TABLET PO PRN (23:09)
[2020-02-06 00:50] LABS: Hemoglobin 8.7 g/dL (11.5-15.4)
[2020-02-06 00:51] LABS: Mean Corpuscular Hemoglobin 23.9 pg (28.0-33.3); Mean Corpuscular Volume 82.4 fL (83.0-100.0); Mean Platelet Volume 10.6 fL (9.4-12.4); Platelet Count 197 K/mcL (140-400); Red Blood Count 3.64 M/mcL (3.82-4.97); White Blood Count 9.3 K/mcL (4.3-11.1)
[2020-02-06 01:15] LABS: BUN/Creatinine Ratio 41 (6-26); Blood Urea Nitrogen 24 mg/dL (8-23); Calcium 9.2 mg/dL (8.6-10.3); Carbon Dioxide 42 mEq/L (23-29); Chloride 96 mEq/L (98-107); Glucose 111 mg/dL (70-105); Osmolality,Calculated 299 (280-300); Potassium 4.1 mEq/L (3.5-5.1); Sodium 142 mEq/L (136-145); eGFR For African Americans > 60 (> 60); eGFR For Non-African Americans > 60 (> 60)
[2020-02-06] MEDS: Insulin LISPRO 300 UNITS/3 ML VIAL SQ SCH ×4 (07:26→21:39)
[2020-02-06] MEDS: Apixaban 5 MG TABLET PO SCH (07:27)
[2020-02-06] MEDS: Pregabalin 50 MG CAPSULE PO SCH ×2 (07:27→21:45)
[2020-02-06] MEDS: Gabapentin 300 MG CAPSULE PO SCH ×2 (07:27→21:46)
[2020-02-06] MEDS: Sennosides/Docusate Sodium TABLET PO SCH ×3 (07:28→21:48)
[2020-02-06] MEDS: predniSONE 20 MG TABLET PO SCH (07:28)
[2020-02-06] MEDS: Budesonide Neb 0.5 MG/2 ML IH SCH ×2 (07:31→20:58)
[2020-02-06] MEDS: *HR* Promethazine 25 MG/ML VIAL IVP PRN (16:11)
[2020-02-07 04:28] LABS: Hematocrit 31.5 % (35.3-44.9); Hemoglobin 8.9 g/dL (11.5-15.4); Mean Corpuscular HGB Conc 28.3 g/dL (31.6-35.5); Mean Corpuscular Hemoglobin 23.4 pg (28.0-33.3); Mean Corpuscular Volume 82.7 fL (83.0-100.0); Mean Platelet Volume 11.2 fL (9.4-12.4); Platelet Count 224 K/mcL (140-400); Red Blood Count 3.81 M/mcL (3.82-4.97); Red Cell Distribution Width 18.1 % (11.5-14.5); White Blood Count 11.6 K/mcL (4.3-11.1)
[2020-02-07 04:44] LABS: BUN/Creatinine Ratio 29 (6-26); Blood Urea Nitrogen 16 mg/dL (8-23); Calcium 8.8 mg/dL (8.6-10.3); Carbon Dioxide 37 mEq/L (23-29); Chloride 98 mEq/L (98-107); Glucose 89 mg/dL (70-105); Osmolality,Calculated 293 (280-300); Potassium 3.4 mEq/L (3.5-5.1); Sodium 141 mEq/L (136-145); eGFR For African Americans > 60 (> 60); eGFR For Non-African Americans > 60 (> 60)
[2020-02-07] MEDS: Insulin LISPRO 300 UNITS/3 ML VIAL SQ SCH ×4 (07:22→20:51)
[2020-02-07] MEDS: predniSONE 20 MG TABLET PO SCH (07:22)
[2020-02-07] MEDS: Pregabalin 50 MG CAPSULE PO SCH ×2 (07:23→20:16)
[2020-02-07] MEDS: Gabapentin 300 MG CAPSULE PO SCH ×2 (07:23→20:53)
[2020-02-07] MEDS: Sennosides/Docusate Sodium TABLET PO SCH ×2 (07:23→20:16)
[2020-02-07] MEDS ORDERED: Potassium Chloride 20 MEQ, Lidocaine 1% 2 ML in 0.9 % Sodium Chloride 250 ML IVPB ONE (08:13)
[2020-02-07] MEDS ORDERED: 0.9 % Sodium Chloride 500 ML IVC SCH (08:30)
[2020-02-07] MEDS: Budesonide Neb 0.5 MG/2 ML IH SCH ×2 (10:35→22:09)
[2020-02-07] MEDS ORDERED: Lidocaine 2% Syringe 100 MG/5 ML IV ONE (14:09)
[2020-02-07] MEDS ORDERED: *HR* Propofol 500 MG/50 ML BOTTLE IVC ONE (14:09)
[2020-02-07] MEDS: *HR* LORazepam 0.5 MG TABLET PO PRN (15:58)
[2020-02-07] MEDS: Apixaban 5 MG TABLET PO SCH (20:16)
[2020-02-07] MEDS: Melatonin 3 MG TABLET PO PRN (21:49)
[2020-02-08 04:58] LABS: Hematocrit 29.7 % (35.3-44.9); Hemoglobin 8.2 g/dL (11.5-15.4); Mean Corpuscular HGB Conc 27.6 g/dL (31.6-35.5); Mean Corpuscular Hemoglobin 22.8 pg (28.0-33.3); Mean Corpuscular Volume 82.7 fL (83.0-100.0); Platelet Count 183 K/mcL (140-400); Red Blood Count 3.59 M/mcL (3.82-4.97); Red Cell Distribution Width 18.3 % (11.5-14.5)
[2020-02-08 05:10] LABS: BUN/Creatinine Ratio 26 (6-26); Blood Urea Nitrogen 13 mg/dL (8-23); Calcium 8.6 mg/dL (8.6-10.3); Carbon Dioxide 31 mEq/L (23-29); Chloride 102 mEq/L (98-107); Glucose 96 mg/dL (70-105); Osmolality,Calculated 292 (280-300); Potassium 3.7 mEq/L (3.5-5.1); Sodium 141 mEq/L (136-145); eGFR For African Americans > 60 (> 60); eGFR For Non-African Americans > 60 (> 60)
[2020-02-08] MEDS: Insulin LISPRO 300 UNITS/3 ML VIAL SQ SCH (08:44)
[2020-02-08] MEDS: Pregabalin 50 MG CAPSULE PO SCH (09:27)
[2020-02-08] MEDS: Sennosides/Docusate Sodium TABLET PO SCH (09:27)
[2020-02-08] MEDS: Gabapentin 300 MG CAPSULE PO SCH (09:28)
[2020-02-08] MEDS: predniSONE 20 MG TABLET PO SCH (09:28)
[2020-02-08] MEDS: Apixaban 5 MG TABLET PO SCH (09:28)
[2020-02-08 10:50] VITALS: BP 131/65
[2020-02-08] MEDS: Budesonide Neb 0.5 MG/2 ML IH SCH (11:12)
== END 2020-02-08 14:10 | disposition home health service (06) | DRG 189 ==
LOC: EMEROOARM 15:34 → ICNU 15:34 → SUATTDRO 21:36 → 3ANU 02-01 16:38
PROVIDERS: ADMIT Internal Medicine; ATTEND Internal Medicine
PROC: ENDOCBX (2020-02-07 08:35)
PROC: ENDOEBX (2020-02-07 08:35)

== ENCOUNTER 2022-08-26 13:27 | Inpatient (IN) ==
[2022-08-26] MEDS ORDERED: Piperacillin/Tazobactam 3.375 GM in 0.9 % Sodium Chloride Mini Bag 100 ML IVPB ONE (18:59)
[2022-08-26] MEDS ORDERED: Vancomycin 1,250 MG/262.5 ML IV.SOLN IVPB ONE (19:00)
[2022-08-26 19:48] LABS: Basophils # 0.1 K/mcL (0.0-0.2); Basophils % 0.4 %; Eosinophils # 0.1 K/mcL (0.0-0.6); Hematocrit 42.3 % (35.3-44.9); Hemoglobin 13.6 g/dL (11.5-15.4); Immature Granulocytes % 0.6 % (0-4); Lymphocytes # 3.2 K/mcL (0.6-4.6); Lymphocytes % 24.1 %; Mean Corpuscular HGB Conc 32.2 g/dL (31.6-35.5); Mean Corpuscular Hemoglobin 30.1 pg (28.0-33.3); Mean Corpuscular Volume 93.6 fL (83.0-100.0); Mean Platelet Volume 10.1 fL (9.4-12.4); Monocytes # 0.8 K/mcL (0.0-1.3); Monocytes % 6.1 %; Neutrophils # 9.1 K/mcL (1.6-8.9); Platelet Count 273 K/mcL (140-400); Red Blood Count 4.52 M/mcL (3.82-4.97); Red Cell Distribution Width 13.1 % (11.5-14.5); Segmented Neutrophils % 67.8 %; White Blood Count 13.4 K/mcL (4.3-11.1)
[2022-08-26 20:14] LABS: Calcium 9.9 mg/dL (8.6-10.3); Potassium 4.5 mEq/L (3.5-5.1)
[2022-08-26] MEDS ORDERED: Iopamidol - 370 500 ML MLS IVP ONE (20:36)
[2022-08-26] MEDS ORDERED: Ondansetron 4 MG/2 ML VIAL IVP ONE (20:40)
[2022-08-26] MEDS ORDERED: Naloxone 0.4 MG/ML INJ IVP PRN (22:31)
[2022-08-26] MEDS ORDERED: Melatonin 3 MG TABLET PO PRN (22:31)
[2022-08-26] MEDS ORDERED: Loratadine 10 MG TABLET PO PRN (22:38)
[2022-08-26 23:58] LABS: Estimated Average Glucose 169 mg/dl; Hemoglobin A1C 7.5 %
[2022-08-27] MEDS ORDERED: *HR* Heparin 5,000 UNIT/ML VIAL IVP PRN ×2 (00:12)
[2022-08-27] MEDS ORDERED: *HR* Heparin 5,000 UNIT/ML VIAL IVP ONE (00:12)
[2022-08-27] MEDS: Ondansetron ODT 4 MG TAB.RAPDIS SL PRN ×2 (00:13→21:37)
[2022-08-27] MEDS: Pregabalin 75 MG CAPSULE PO SCH ×3 (00:13→21:37)
[2022-08-27] MEDS ORDERED: Heparin 25,000UNIT/250ML 1/2NS 25,000 UNIT/250 ML IV.SOLN IVC SCH (00:15)
[2022-08-27 02:02] LABS: Hematocrit 37.9 % (35.3-44.9); Hemoglobin 12.2 g/dL (11.5-15.4); Mean Corpuscular HGB Conc 32.2 g/dL (31.6-35.5); Mean Corpuscular Volume 93.3 fL (83.0-100.0); Mean Platelet Volume 10.2 fL (9.4-12.4); Platelet Count 220 K/mcL (140-400); Red Blood Count 4.06 M/mcL (3.82-4.97); Red Cell Distribution Width 13.1 % (11.5-14.5); White Blood Count 10.5 K/mcL (4.3-11.1)
[2022-08-27 02:11] LABS: INR 1.3; Prothrombin Time 14.3 Seconds (9.4-12.1)
[2022-08-27 02:12] LABS: Heparin anti-factor XA UFH 0.28 IU/mL (0.30-0.70)
[2022-08-27] MEDS: Piperacillin/Tazobactam 3.375 GM in 0.9 % Sodium Chloride Mini Bag 100 ML IVPB SCH ×3 (03:18→18:21)
[2022-08-27 04:13] LABS: Calcium 8.8 mg/dL (8.6-10.3); Magnesium 1.9 mg/dL (1.6-2.6); Phosphorous 4.1 mg/dL (2.7-4.5)
[2022-08-27] MEDS: Vancomycin 1,250 MG/262.5 ML IV.SOLN IVPB SCH (09:37)
[2022-08-27] MEDS ORDERED: Moderna COVID-19 Vac ,BIVALENT BOOSTER 50 MCG/0.5 ML VIAL IM ONE (14:13)
[2022-08-27 17:02] LABS: A.calcoaceticus-baumannii cplx Not Detected (Not Detect); Bacteroides fragilis by PCR Not Detected (Not Detect); Candida albicans by PCR Not Detected (Not Detect); Candida auris by PCR Not Detected (Not Detect); Candida glabrata by PCR Not Detected (Not Detect); Candida krusei by PCR Not Detected (Not Detect); Candida parapsilosis by PCR Not Detected (Not Detect); Candida tropicalis by PCR Not Detected (Not Detect); Crypto. neoformans/gattii PCR Not Detected (Not Detect); Enterobacter cloacae Cmplx PCR Not Detected (Not Detect); Enterobacterales by PCR Not Detected (Not Detect); Enterococcus faecalis by PCR Not Detected (Not Detect); Enterococcus faecium by PCR Not Detected (Not Detect); Escherichia coli by PCR Not Detected (Not Detect); Klebs. pneumoniae group by PCR Not Detected (Not Detect); Klebsiella aerogenes by PCR Not Detected (Not Detect); Klebsiella oxytoca by PCR Not Detected (Not Detect); Proteus by PCR Not Detected (Not Detect); Pseudomonas aeruginosa by PCR Not Detected (Not Detect); Salmonella species by PCR Not Detected (Not Detect); Serratia marcescens by PCR Not Detected (Not Detect); Staph epidermidis by PCR DETECTED (Not Detect); Staph lugdunensis by PCR Not Detected (Not Detect); Staphylococcus aureus by PCR Not Detected (Not Detect); Stenotrophomonas maltophilia Not Detected (Not Detect); Streptococcus agalactiae(B)PCR Not Detected (Not Detect); Streptococcus by PCR Not Detected (Not Detect); Streptococcus pneumoniae PCR Not Detected (Not Detect); Streptococcus pyogenes (A) PCR Not Detected (Not Detect); mecA/C Methicillin-Resist Gene DETECTED (Not Detect)
[2022-08-27] MEDS: Apixaban 5 MG TABLET PO SCH (17:13)
[2022-08-28] MEDS: Piperacillin/Tazobactam 3.375 GM in 0.9 % Sodium Chloride Mini Bag 100 ML IVPB SCH ×3 (03:13→18:56)
[2022-08-28] MEDS: Pregabalin 75 MG CAPSULE PO SCH ×2 (09:50→21:44)
[2022-08-28] MEDS: Apixaban 5 MG TABLET PO SCH ×2 (09:50→21:44)
[2022-08-28] MEDS: Vancomycin 1,250 MG/262.5 ML IV.SOLN IVPB SCH (10:38)
[2022-08-28] MEDS ORDERED: Gadolinium Contrast Agent (WT Based) IV PRN (11:49)
[2022-08-29] MEDS: Piperacillin/Tazobactam 3.375 GM in 0.9 % Sodium Chloride Mini Bag 100 ML IVPB SCH ×3 (03:02→18:26)
[2022-08-29] MEDS: Pregabalin 75 MG CAPSULE PO SCH ×2 (09:54→20:19)
[2022-08-29] MEDS: Apixaban 5 MG TABLET PO SCH ×2 (09:54→20:19)
[2022-08-29 09:58] LABS: Basophils % 0.4 %; Eosinophils # 0.2 K/mcL (0.0-0.6); Eosinophils % 2.3 %; Hematocrit 39.1 % (35.3-44.9); Hemoglobin 12.6 g/dL (11.5-15.4); Immature Granulocytes % 0.6 % (0-4); Lymphocytes # 1.7 K/mcL (0.6-4.6); Lymphocytes % 21.2 %; Mean Corpuscular HGB Conc 32.2 g/dL (31.6-35.5); Mean Corpuscular Hemoglobin 30.1 pg (28.0-33.3); Mean Corpuscular Volume 93.3 fL (83.0-100.0); Mean Platelet Volume 9.9 fL (9.4-12.4); Monocytes # 0.6 K/mcL (0.0-1.3); Monocytes % 7.4 %; Neutrophils # 5.6 K/mcL (1.6-8.9); Platelet Count 182 K/mcL (140-400); Red Blood Count 4.19 M/mcL (3.82-4.97); Segmented Neutrophils % 68.1 %; White Blood Count 8.2 K/mcL (4.3-11.1)
[2022-08-29 10:17] LABS: Calcium 8.8 mg/dL (8.6-10.3)
[2022-08-29] MEDS: Vancomycin 1,250 MG/262.5 ML IV.SOLN IVPB SCH (10:54)
[2022-08-29] MEDS ORDERED: *HR* Propofol 200 MG/20 ML VIAL IVP ONE (10:56)
[2022-08-29] MEDS ORDERED: *HR* FentaNYL (PF) 100 MCG/2 ML VIAL ONE (11:00)
[2022-08-29] MEDS: Ondansetron ODT 4 MG TAB.RAPDIS SL PRN (11:14)
[2022-08-29 22:01] LABS: Adenovirus F 40/41 PCR Not detected (Not detect); Astrovirus PCR Not detected (Not detect); C.difficile Toxin A/B Gene PCR Not detected (Not detect); Campylobacter by PCR Not detected (Not detect); Cryptosporidium by PCR Not detected (Not detect); Cyclospora cayetanensis PCR Not detected (Not detect); Entamoeba histolytica PCR Not detected (Not detect); Enteroaggregative E.coli(EAEC) Not detected (Not detect); Enteropathogenic E.coli(EPEC) Not detected (Not detect); Enterotoxigenic E.coli (ETEC) Not detected (Not detect); Giardia lamblia PCR Not detected (Not detect); Norovirus GI/GII PCR Not detected (Not detect); Plesiomonas shigelloides PCR Not detected (Not detect); Rotavirus A PCR Not detected (Not detect); Salmonella PCR Not detected (Not detect); Sapovirus PCR Not detected (Not detect); Shig/EnteroinvasiveE coli EIEC Not detected (Not detect); Shigalike tox-prod E coli STEC Not detected (Not detect); Vibrio PCR Not detected (Not detect); Vibrio cholerae PCR Not detected (Not detect); Yersinia enterocolitica PCR Not detected (Not detect)
[2022-08-30] MEDS: Piperacillin/Tazobactam 3.375 GM in 0.9 % Sodium Chloride Mini Bag 100 ML IVPB SCH ×2 (03:04→11:26)
[2022-08-30 06:54] VITALS: PULSE 66; TEMP 98.5
[2022-08-30 06:55] VITALS: BP 138/84; O2SAT 109
[2022-08-30] MEDS: Apixaban 5 MG TABLET PO SCH (09:51)
[2022-08-30] MEDS: Pregabalin 75 MG CAPSULE PO SCH (09:51)
== END 2022-08-30 14:19 | disposition home health service (06) | DRG 603 ==
LOC: EMEROOARM 13:27 → 3BNU 13:27 → SUATTDRO 22:32 → 3BNU 23:49 → SUATTDRO 08-28 17:05
PROVIDERS: ADMIT Internal Medicine; ATTEND Internal Medicine